=== PATIENT | male | born 1945 | race Caucasian/White ===

== ENCOUNTER → 2023-11-22 07:02 | Outpatient (REF) | payer MEDICARE, OTHER, SELFPAY | LOC: RCS 07:02 | PROVIDERS: ATTENDING PHYSICIAN Internal Medicine Cardiovascular Disease; FAMILY PHYSICIAN Family Medicine | DX: I35.0 Nonrheumatic aortic (valve) stenosis (principal) | CPT/HCPCS: 93306 ==

== ENCOUNTER → 2024-06-05 08:01 | Outpatient (REF) | payer MEDICARE, OTHER, SELFPAY | LOC: RCS 08:01 | PROVIDERS: ATTENDING PHYSICIAN Physician Assistant Medical; FAMILY PHYSICIAN Family Medicine | DX: I35.0 Nonrheumatic aortic (valve) stenosis (principal) | CPT/HCPCS: 93306 ==

== ENCOUNTER → 2024-12-15 06:56 | Outpatient (REF) | payer MEDICARE, OTHER, SELFPAY | LOC: RCS 06:56 | PROVIDERS: ATTENDING PHYSICIAN Internal Medicine Cardiovascular Disease; FAMILY PHYSICIAN Family Medicine | DX: I35.0 Nonrheumatic aortic (valve) stenosis (principal) | CPT/HCPCS: 93306 ==

== ENCOUNTER 2025-05-01 15:01 | Inpatient (IN) | payer MEDICARE, OTHER, SELFPAY ==
[2025-05-01 10:04] VITALS: BP 196/116
[2025-05-01 10:31] LABS: Hematocrit 43.2 % (39.0-52.0); Hemoglobin 15.0 g/dL (13.0-18.0); Mean Corp Hgb Conc. 34.7 g/dL (33.0-37.0); Mean Corpuscular Volume 86.9 fL (80.0-94.0); Nucleated Red Blood Cells % 0 % (-); Platelet Count 279 10^3/uL (130-400); Red Cell Dist. Width 11.9 % (11.5-14.5)
[2025-05-01 11:01] LABS: Albumin 4.4 g/dl (3.5-5.0); Alkaline Phosphatase 167 U/L (38-126); Blood Urea Nitrogen 11 mg/dl (9-20); Calcium 10.2 mg/dl (8.4-10.2); Carbon Dioxide 29 mmol/L (22-30); Chloride 99 mmol/L (98-107); Glucose 133 mg/dl (70-99); Lipase 251 U/L (23-300); Potassium 4.7 mmol/L (3.5-5.1); Sodium 133 mmol/L (135-145); Total Protein 8.1 g/dl (6.3-8.2); eGFR > 60.00
[2025-05-01 11:08] LABS: ALT (SGPT) 1012 U/L (0-50); AST (SGOT) 863 U/L (17-59)
[2025-05-01 11:09] VITALS: BMI 27.8
[2025-05-01] MEDS: TORADOL 15 MG IV (12:09)
[2025-05-01 12:31] LABS: Urine Character Clear (Clear)
[2025-05-01 12:43] LABS: Urine Squamous Cell 0-2 /LPF (Few)
[2025-05-01 12:44] LABS: Urine Red Blood Cell 0-2 /HPF (0-2)
--- NOTE | 2025-05-01 14:08 | ED.GENMED ---
History of Present Illness
General
Chief Complaint: Abdominal Symptoms
Time Seen by Provider: 05/01/25 11:32
History of Present Illness
History of Present Illness:
79-year-old male with history of hyperlipidemia presenting to the emergency department for 2 weeks of upper abdominal pain. Patient notes that the pain is right-sided. Denies any known association with food. Denies associated chest pain or
difficulty breathing. Denies any history. Denies any vomiting. Denies any known history of gallbladder issues. Denies fever. Patient went to urgent care, was sent to the ER for further assessment
Phy Exam
Physical Exam
Physical Exam:
General: Well-appearing, no clinical signs of dehydration, nontoxic and in no acute distress
HEENT: protecting airway
Neck: appears supple
CV: Normal heart rate, regular rhythm
Resp: No accessory muscle use, no increased work of breathing
Abd: Soft and non-distended, focal tenderness to the right upper quadrant without rebound or guarding
Extremities: No deformities, no swelling
Neuro: alert, no focal neurologic deficit
: deferred
Rectal: deferred
Psych: Normal affect
Skin: Intact
Course
Orders/Labs/Results
Orders:
Orders
05/01/25 10:20
Complete Blood Count/With Diff Urgent
Comprehensive Metabolic Panel Urgent
Lipase Urgent
05/01/25 11:59
Ketorolac [Toradol] 15 mg IV NOW STA
US Abdomen Complete/Upper Urgent
Comment:
Reason For Exam: upper pain, transaminitis, elevated T.bili
05/01/25 12:10
Urinalysis Reflex To Culture Urgent
Date Specimen was Collected: 05/01/25
Time Specimen was Collected: 12:01
Urine Microscopic Reflex Cult Urgent
Urine Culture Urgent
JAKY Source: U
Specimen Description:
Date Specimen was Collected: 05/01/25
Time Specimen was Collected: 12:01
05/01/25 14:02
Piperacillin/Tazo 4.5 Gram [Zosyn] 4.5 gram in 100 ml IV NOW
Abnormal Lab Results
05/01/25 05/01/25
10:20 12:10
Absolute Monos (auto) 0.8 H 10^3/uL
(0.1-0.6)
Lymphocytes % 16.5 L %
(20.5-51.1)
Sodium 133 L mmol/L
(135-145)
Creatinine 0.6 L mg/dL
(0.7-1.3)
Glucose 133 H mg/dl
(70-99)
Total Bilirubin 3.1 H mg/dl
(0.2-1.3)
AST 863 H* U/L
(17-59)
ALT 1012 H* U/L
(0-50)
Alkaline Phosphatase 167 H U/L
(38-126)
Ur Occult Blood Reflex 2+ A
(Negative)
Urine Urobilinogen 3+ A
(Neg - 1+)
Urine Bacteria (Reflex) Many A
(Negative)
Urine Albumin (Reflex) 3+ A
(Neg - Trace)
05/01/25 10:20
05/01/25 10:20
Vital Signs
Initial and Last Documented VS:
Initial Vital Signs
Temp Pulse Resp BP Pulse Ox
98.4 F 88 20 196/116 91
05/01/25 10:04 05/01/25 10:04 05/01/25 10:04 05/01/25 10:04 05/01/25 10:04
Last Documented Vital Signs
Temp Pulse Resp BP Pulse Ox
98.4 F 88 20 196/116 91
05/01/25 10:04 05/01/25 10:04 05/01/25 12:00 05/01/25 10:04 05/01/25 14:09
MDM/Problems Addressed
MDM/Problems Addressed:
79-year-old male with history of hyperlipidemia presenting to the emergency department for 2 weeks of upper abdominal pain. Vital signs on arrival are significant for high blood pressure.
On exam patient is resting comfortably, no acute distress. Mild focal reproducible tenderness in the right upper quadrant. Patient had labs obtained prior to my assessment with markedly abnormal liver function and T. bili. Given these findings,
choledocholithiasis versus cholecystitis. Will initiate workup with right upper quadrant ultrasound imaging.
14:30 - Right upper quadrant ultrasound is consistent with sludge, gallstones, mild wall thickening. Additionally there is concern for mild intrahepatic biliary tract dilatation. Again concern for choledocholithiasis. GI made aware. Starting
antibiotics for additional concern of possible cholecystitis. Plan for admission
*Pulse Oximetry
SaO2: 91
Oxygen Mode of Delivery: Room air
Patient hypoxic: no
*Critical Care Note
Total Time (30-74mins, 75-104mins- exclusive of procedures): Not Applicable
ED Attending Note
-
Portions of this chart may have been created with voice recognition software.� Occasional wrong word or��sound alike� substitutions may have occurred due to the inherent limitations of voice recognition software.
Discharge Plan
Departure
Patient Disposition: Admit
Date of Disposition: 05/01/25
Time of Disposition: 14:24
Presentation/result/management discussed w/ accepting MD/DO: Hospitalist
Patient with high blood pressure during this ER visit?: No
Condition: Fair
Discharge Problem:
Transaminitis, Abdominal pain, Choledocholithiasis
Prescriptions:
No Action
atorvastatin [Lipitor] 10 mg Tablet
10 mg PO DAILY
Referrals:
Dilan Connolly MD [Family Provider, Family Practice]
Interventions
Interventions:
*Risk Screen - Suicide Last Done: 05/01/25 10:04
*General Assessment Last Done: 05/01/25 10:04
*Neglect/Abuse Screening Last Done: 05/01/25 10:04
*ED- Fall Risk Assessment Last Done: 05/01/25 11:11
*ED COVID-19 Vaccine History Last Done: 05/01/25 11:11
*ED Influenza Vaccine History Last Done: 05/01/25 11:11
YB-Pclayu-Qgdzrufufj Assessment Last Done: 05/01/25 11:10
Discharge Date and Time
Print Language: SAMI
[2025-05-01] MEDS: ZOSYN 100 IV (14:09)
--- NOTE | 2025-05-01 14:19 | HPS.HSE ---
Addendum entered and electronically signed by Paxton Brock MD 05/01/25 16:31:
This is an addendum to H&P written by Nuris Renae on 05/01/2025. �Patient seen and examined independently with [employer].
79-year-old male past medical history of hypertension, hyperlipidemia, fibromyalgia, chronic cough, presenting with right upper quadrant abdominal intermittently pain for 2 weeks worse with cough.
Vital signs show blood pressure 196/116.
Labs show significantly elevated LFTs up to ALT of 1000. �Bilirubin of 3.1.
Abdominal ultrasound shows cholelithiasis, gallbladder sludge with mild gallbladder wall thickening, negative sonographic Paige sign, common bile duct normal in caliber.
Patient with likely choledocholithiasis/acute cholecystitis. �N.p.o., Zosyn, MRCP, GI consulted.
As needed hydralazine for elevated blood pressure.
Original Note:
Family Physician
-
Family Physician: Dilan Connolly
Chief Complaint
-
right sided adominal pain
History of Present Illness
79-year-old male with history of hyperlipidemia presenting to the emergency department for 2 weeks of right sided upper abdominal pain which radiates to his back and around. it gets worse with cough, it gets betters its own. patient was not able to
sleep last night due to the pain. denied n/v/d. denied fever, chills,congestion. denied chest pain, sob. denied dysuria or hematuria.
Patient received a dose of Toradol, Zosyn in ER. Admitting for further management
Medical History
Past Medical History
Past Medical History: Reports Other
Additional Past Medical History:
Hypertension, hypercholesteremia, fibromyalgia, hyperlipidemia
Past Surgical History: Reports Other
Additional Past Surgical History:
Carpal tunnel repair, prostatectomy, tonsillectomy
Social History
Tobacco: Non-smoker
Alcohol: Occasional
Drug: None
Family History
Family History: Not pertinent
Allergies / Home Medications
Allergies reflects when Allergies were last updated in [facility].
Home Medications with original date entered in [facility]
Allergy/Medication List:
Allergies
Allergy/AdvReac Type Severity Reaction Status Date / Time
No Known Allergies Allergy Verified 05/01/25 10:08
Home Medications
atorvastatin 10 mg tablet (Lipitor) 10 mg PO DAILY High Cholesterol 05/01/25
Review of Systems
-
Constitutional: Reports No Symptoms
EENT: Reports No Symptoms
Respiratory: Reports No Symptoms
Cardiac: Reports No Symptoms
Abdomen/GI: Reports Abdominal Pain
: Reports No Symptoms
Musculoskeletal: Reports No Symptoms
Skin: Reports No Symptoms
Neurological: Reports No Symptoms
Endocrine: Reports No Symptoms
Hematologic/Lymphatic: Reports No Symptoms
Psych: Reports No Symptoms
Physical Exam
Vital Signs
Vital Signs
Temp Pulse Resp BP Pulse Ox
98.4 F 88 20 196/116 91
05/01/25 10:04 05/01/25 10:04 05/01/25 12:00 05/01/25 10:04 05/01/25 14:09
Physical Exam
General: Well Developed, Well Nourished and No Apparent Distress
HEENT: NormoCephalic, Moist mucous membranes and Atraumatic
Respiratory: Clear
Cardiac: S1/S2 and Regular Rhythm; No Murmur or Rub
GI: Soft, Non Tender, Non Distended and Normal Bowel Sounds; No Organomegaly
Rectal: Deferred by Provider
Musculoskeletal: No Clubbing, No Cyanosis and No Edema
Skin: No Rash
Neuro: AO x 3 and Nonfocal/grossly intact
Psych: Calm
Laboratory Results
-
05/01/25 10:20
05/01/25 10:20
Laboratory Results
Total Bilirubin 3.1 mg/dl (0.2-1.3) H 05/01/25 10:20
AST 863 U/L (17-59) H* 05/01/25 10:20
ALT 1012 U/L (0-50) H* 05/01/25 10:20
Alkaline Phosphatase 167 U/L (38-126) H 05/01/25 10:20
Lipase 251 U/L (23-300) 05/01/25 10:20
Data Reviewed
-
Diagnostic Radiology: Report Reviewed by me
Lab Data: Labs Reviewed by me
Impression/Plan
-
# Upper abdominal pain concern for possible biliary stone/cholecystitis
-fluids continued for hydration
-keep patient nPO
-abx continued
-Zosyn continued
-Dilaudid p.o. for pain
-GI consulted
- T. bili 3.1, AST 863, ALT 1012
- Abdominal ultrasound with impression of Cholelithiasis and gallbladder sludge with mild gallbladder wall thickening. Negative sonographic Paige's sign. Common bile duct within the limits of normal in caliber. Findings suggesting mild intrahepatic
biliary tract dilatation. Consider GI consultation and/or MRI/MRCP for more complete evaluation.Pancreas and mid/distal abdominal aorta significantly obscured, most likely by overlying bowel gas.
# Hypertension emergency secondary to pain
# Hyperlipidemia
- Hold Lipitor in setting of transaminitis
# DVT prophylaxis
- Lovenox
# CODE STATUS
- Full code
--- NOTE | 2025-05-01 14:41 | CON.GI ---
Addendum entered and electronically signed by Matheus Sommer MD 05/01/25 16:00:
I saw and evaluated the patient. I reviewed the resident�s note and agree with findings and plan as documented in the resident�s note.
79 yo male presents with two weeks of episodic RUQ pain increasing in intensity. Also noted dark urine. AST 863, ALT 1012, TB 3.1, AP 167. US shows gallstones and sludge, mild GBWT, mild IHDD. Pain relieved with meds. WBC 8.1.
REC:
Presentation c/w choledocholithiasis.
Will check MRI/MRCP to r/o CBD stone
If positive, ERCP for extraction followed by cholecystectomy
If negative, would discuss cholecystectomy directly and consult Surgery
Original Note:
Consultation
-
Date/Time Consultation Requested: 05-01-25
Date/Time Consultation Performed: 05-01-25
Requesting Provider: Dr. Eduarda Finn
Performing Provider: Dr. Matheus Sommer
Reason for Consultation: RUQ pain
Medical History
Chief Complaint / HPI
Chief Complaint: RUQ pain
History of Present Illness:
Papo Mccormick, 79-year-old with medical history significant for hypertension and hyperlipidemia, is admitted to [facility] with 2 weeks of progressive RUQ pain. Denies any preceding illness or changes to his health leading up to the onset of the pain.
The pain was intermittent at first and has now become constant. Worse with movement and coughing. Not associated with foods, and no other known exacerbating factors. No known relieving factors; he denies taking any medications, acetaminophen or
NSAIDs, for the pain. No known history of hepatic or biliary disorders. Labs in the ED were notable for AST 863 and ALT 1012 with an AlkP of 167. US abdomen findings consistent with mild intrahepatic biliary tract dilatation. Reports decreased
appetite since the pain began. No fevers, chills, night sweats, fatigue, weakness, nausea, vomiting, diarrhea, constipation, blood in stool or unintentional weight loss.
Past Medical History
Past Medical History: HTN and Hypercholesterolemia
Past Surgical History: Other (tonsillectomy, proctectomy, carpal tunnel surgery)
Social History
Tobacco: Non-Smoker
Alcohol: None
Drug: None
Employment: Retired
Family History
Family History: Other (gall bladder disease in mother)
Allergies / Home Medications
Allergy/AdvReac Type Severity Reaction Status Date / Time
No Known Allergies Allergy Verified 05/01/25 10:08
�Medication �Instructions �Recorded
atorvastatin 10 mg tablet (Lipitor) 10 mg PO DAILY High Cholesterol 05/01/25
Review of Systems
-
History Source: Patient
All other systems: A 12 pt ROS was Negative except as stated above in HPI
Vital Signs
Temp Pulse Resp BP Pulse Ox
98.4 F 88 20 196/116 91
05/01/25 10:04 05/01/25 10:04 05/01/25 12:00 05/01/25 10:04 05/01/25 14:09
Physical Exam
Exam
General: No Apparent Distress and Comfortable
HEENT: Normocephalic, Atraumatic and Other (scleral icterus)
Respiratory: Clear and Non Labored Respirations
Cardiac: S1/S2 and Regular Rhythm; Negative Murmur or Rub
GI: Soft, Non Tender, Non Distended, Normal Bowel Sounds, Organomegaly and Other (Negative Paige's)
Genito-urinary: No Costovertebral Tender
Musculoskeletal: No Clubbing, No Cyanosis and No Edema
Neuro: Awake, Alert, Oriented, No Motor Deficits and Nonfocal/Grossly Intact
Psych: Calm
Results
WBC 8.1 10^3/uL (4.8-10.8) 05/01/25 10:20
Hgb 15.0 g/dL (13.0-18.0) 05/01/25 10:20
Hct 43.2 % (39.0-52.0) 05/01/25 10:20
MCV 86.9 fL (80.0-94.0) 05/01/25 10:20
Plt Count 279 10^3/uL (130-400) 05/01/25 10:20
Absolute Neuts (auto) 5.7 10^3/uL (1.4-6.5) 05/01/25 10:20
Sodium 133 mmol/L (135-145) L 05/01/25 10:20
Potassium 4.7 mmol/L (3.5-5.1) 05/01/25 10:20
Chloride 99 mmol/L (98-107) 05/01/25 10:20
Carbon Dioxide 29 mmol/L (22-30) 05/01/25 10:20
BUN 11 mg/dl (9-20) 05/01/25 10:20
Creatinine 0.6 mg/dL (0.7-1.3) L 05/01/25 10:20
Calcium 10.2 mg/dl (8.4-10.2) 05/01/25 10:20
Total Bilirubin 3.1 mg/dl (0.2-1.3) H 05/01/25 10:20
AST 863 U/L (17-59) H* 05/01/25 10:20
ALT 1012 U/L (0-50) H* 05/01/25 10:20
Alkaline Phosphatase 167 U/L (38-126) H 05/01/25 10:20
Lipase 251 U/L (23-300) 05/01/25 10:20
Diagnostic Image Results:
05-01-25: US abdomen: Findings compatible with diffuse fatty liver. Cholelithiasis and gallbladder sludge with mild gallbladder wall thickening. Negative sonographic Paige's sign. Common bile duct within the limits of normal in caliber. Findings
suggesting mild intrahepatic biliary tract dilatation. Consider GI consultation and/or MRI/MRCP for more complete evaluation. Pancreas and mid/distal abdominal aorta significantly obscured, most likely by overlying bowel gas.
Assessment / Plan
-
Papo Castillojoseakash, 79-year-old with medical history significant for hypertension and hyperlipidemia, is admitted to [facility] with 2 weeks of progressive RUQ pain. Denies any preceding illness or changes to his health leading up to the onset of the pain.
The pain was intermittent at first and has now become constant. Worse with movement and coughing. Not associated with foods, and no other known exacerbating factors. No known relieving factors; he denies taking any medications, acetaminophen or
NSAIDs, for the pain. No known history of hepatic or biliary disorders. Labs in the ED were notable for AST 863 and ALT 1012 with an AlkP of 167. US abdomen findings consistent with mild intrahepatic biliary tract dilatation.
Impressions:
* Choledocholithiasis/cholecystitis with biliary obstruction
* Transaminitis, likely secondary to above
* Hyperbilirubinemia, likely secondary to above
* Hypertensive urgency
* Primary hypertension
* Hypercholesteremia
Recommendations:
- History and presentation more consistent with primary biliary dysfunction.
- Check direct bilirubin; follow LFTs.
- Check MRCP.
- Keep NPO with IV hydration for now.
- Hold atorvastatin; avoid NSAIDs, acetaminophen and hepatotoxins.
-
-
Thank you for consultation and allowing me to participate in the patient's care. Please call the coupon redemption clerk GI physician during the after hours with any questions or concerns.
--- NOTE | 2025-05-01 15:33 | CM ---
chart reviewed and spoke with patient his at ED bedside
[place] with
no DME
Independent with ADLs and ambulation
PCP Dr. Dilan Connolly
[facility] on [address]
no hx of VN nor SNF
DCP is to go home with no needs
can drive him home
CM will continue to follow up for any dcp needs
[2025-05-01 16:09] VITALS: BP 159/95
[2025-05-01] MEDS: LOVENOX SC (18:27)
[2025-05-01] MEDS: NSS 1000 IV (20:23)
[2025-05-01] MEDS: ZOSYN 50 IV (20:26)
[2025-05-01 23:13] VITALS: BP 141/80
[2025-05-02] MEDS: ZOSYN 50 IV ×4 (02:15→20:50)
[2025-05-02] MEDS: DILAUDID 0.5 MG IV (05:13)
[2025-05-02 07:07] LABS: Hematocrit 40.7 % (39.0-52.0); Hemoglobin 14.1 g/dL (13.0-18.0); Mean Corp Hgb Conc. 34.6 g/dL (33.0-37.0); Mean Corpuscular Volume 87.7 fL (80.0-94.0); Platelet Count 279 10^3/uL (130-400); Red Cell Dist. Width 12.2 % (11.5-14.5)
[2025-05-02 07:33] LABS: Albumin 3.7 g/dl (3.5-5.0); Alkaline Phosphatase 153 U/L (38-126); Blood Urea Nitrogen 11 mg/dl (9-20); Calcium 9.2 mg/dl (8.4-10.2); Carbon Dioxide 30 mmol/L (22-30); Chloride 101 mmol/L (98-107); Estimated Creatinine Clearance 81 ml/min; Glucose 90 mg/dl (70-99); Potassium 4.7 mmol/L (3.5-5.1); Sodium 135 mmol/L (135-145); Total Protein 6.9 g/dl (6.3-8.2); eGFR > 60.00
[2025-05-02] MEDS: NSS 1000 IV ×2 (07:34→20:48)
[2025-05-02 07:45] VITALS: BP 160/98
[2025-05-02 07:57] LABS: ALT (SGPT) 1125 U/L (0-50); AST (SGOT) 751 U/L (17-59)
--- NOTE | 2025-05-02 08:22 | W.PN.HOSP.TC ---
Today's Communication/Plan
-
Trend LFTs
Consider DC of Zosyn
Follow up MRCP
surgery consult
Assessment / Plan
Assessment / Plan
#Choledocholithiasis
- Presented with RUQ discomfort, intermittent for 2 weeks worse with cough
- Labs with uptrending bilirubin to 5, transaminases in the low thousands with slight uptrend
- Was started on IV Zosyn empirically; GI consulted and recommended MRCP which is ordered
- Patient likely will need cholecystectomy but timing likely dependent on results of MRCP
- Continue with IV Zosyn, trend CBC + temperature curve + LFTs, serial abdomen exams
- Follow-up MRCP and consider ERCP for stone retrieval if positive
- Consult general surgery for planning of cholecystectomy
- Supportive care with analgesics, antiemetics, IVF
- Consider discontinuing IV Zosyn today
#Dyslipidemia
- Home regimen includes moderate intensity atorvastatin
- No known ASCVD history
- Encouraged low-fat diet
#Primary hypertension
- No known history of systemic complications, not on home medications
- Started on as needed hydralazine here
#Fibromyalgia
- Not currently on home medications
- Appears stable
Diet: N.p.o. for now
DVT: SQ Lovenox
Code: Full code
Dispo: Home when medically stable
Discussed with General Surgery
Anticipated Discharge: > 48 hours
Subjective/Interval History
-
Date of Service: May 02, 2025
Seen and examined at the bedside. MARCO. TONYVSS. T bili uptrending
Denies significant abdomen pain, N/V, fevers today.
Denies new complaints
Objective Data
-
Labs:
Laboratory Results
05/02/25
06:42
WBC 7.3
Hgb 14.1
Hct 40.7
Plt Count 279
Sodium 135
Potassium 4.7
Chloride 101
Carbon Dioxide 30
BUN 11
Creatinine 0.7
Glucose 90
Calcium 9.2
Total Bilirubin 5.0 H D
AST 751 H*
ALT 1125 H*
Alkaline Phosphatase 153 H
Vital Signs:
Vital Signs
Temp Pulse Resp BP Pulse Ox
98.2 F 88 16 160/98 96
05/02/25 07:45 05/02/25 07:45 05/02/25 07:45 05/02/25 07:45 05/02/25 07:45
Review of Systems
-
History Source: Patient
All other systems: Reviewed and negative
Physical Exam
-
General: Well Developed, Well Nourished and No Apparent Distress
HEENT: Normocephalic, Atraumatic, Moist Mucous Membranes and Anicteric
Respiratory: Clear to Auscultation and Non Labored Respirations; Negative Accessory Resp Muscle Use
Cardiac: Regular Rhythm, S1/S2 and Murmur; Negative Rub, JVD or Gallop
GI: Soft, Nontender, Normal Bowel Sounds and Distended (Mild distension)
Musculoskeletal: No Clubbing, No Cyanosis and No Edema
Skin: Warm, Dry and Jaundice; Negative Rash
Neuro: AO x 3 and Nonfocal/Grossly Intact; Negative Tremors
Psych: Calm
Data Reviewed
-
Labs: Labs Reviewed by me, Discussed with Patient and Discussed with Family
--- NOTE | 2025-05-02 12:46 | W.PN.GI.CBS2 ---
Today's Communication / Plan
-
Will need ERCP to remove CBD stones. Tentatively plan on Sunday since he is currently stable and pain free, though LFTs karina today
If he does not remain stable, will need to check if one of my partners is available for ERCP vs transfer to [place]
Continue zosyn
Trend LFTs, WBC
Keep on sips clears
Assessment / Plan
-
Summary: 79 yo male presents with two weeks of episodic RUQ pain increasing in intensity. Also noted dark urine. AST 863, ALT 1012, TB 3.1, AP 167. US shows gallstones and sludge, mild GBWT, mild IHDD. Pain relieved with meds. WBC 8.1.
05/01 US- Fatty liver. Cholelithiasis, GB sludge with mild GBWT. Mild IHDD
05/02 MRI- Choledocholithiasis and sludge in CBD. Acute cholangitis with IHDD/EHDD. Acute/chronic cholecystitis.
Impression:
Choledocholithiasis
RUQ pain
Abnl LFTs
Gallstones. Mild IHDD
Subjective
Subjective
Date of Service: May 02, 2025
Denies abd pain with pain meds. Asking to eat
Objective
Data Reviewed
Laboratory Data:
Laboratory Results
05/02/25 06:42
05/02/25 06:42
Laboratory Results
Total Bilirubin 5.0 mg/dl (0.2-1.3) H D 05/02/25 06:42
AST 751 U/L (17-59) H* 05/02/25 06:42
ALT 1125 U/L (0-50) H* 05/02/25 06:42
Alkaline Phosphatase 153 U/L (38-126) H 05/02/25 06:42
Lipase 251 U/L (23-300) 05/01/25 10:20
Vital Signs and I&O:
Vital Signs
Temp Pulse Resp BP Pulse Ox
98.2 F 88 16 160/98 96
05/02/25 07:45 05/02/25 07:45 05/02/25 07:45 05/02/25 07:45 05/02/25 07:45
Physical Exam
Physical Exam
GI: Soft, Non Distended and Non Tender
[2025-05-02 15:41] VITALS: BP 129/85
[2025-05-02] MEDS: LOVENOX 40 MG SC (17:23)
[2025-05-02 23:38] VITALS: BP 140/84
[2025-05-03] MEDS: ZOSYN 50 IV ×4 (02:00→19:46)
[2025-05-03] MEDS: NSS 1000 IV ×2 (06:27→17:08)
[2025-05-03 07:25] LABS: Hematocrit 40.2 % (39.0-52.0); Hemoglobin 14.0 g/dL (13.0-18.0); Mean Corp Hgb Conc. 34.8 g/dL (33.0-37.0); Mean Corpuscular Volume 89.9 fL (80.0-94.0); Nucleated Red Blood Cells % 0 % (-); Platelet Count 287 10^3/uL (130-400); Red Cell Dist. Width 12.0 % (11.5-14.5)
--- NOTE | 2025-05-03 07:41 | W.PN.HOSP.TC ---
Addendum entered and electronically signed by Jose A Ruff DO 05/03/25 09:51:
#Severe aortic regurgitation
- Patient with diastolic murmur, has known severe AR echo showing LVEF 54%
- No signs of decompensated volume status at this time, stable on room air
- Will need to follow-up OP for repeat echoes, consider AVR if LVEF <50%
- Monitor I's and O's, daily weights, O2 status
- Plan for OP CT surgical eval
Original Note:
Today's Communication/Plan
-
Continue IV Zosyn
Trend LFTs
As needed analgesics and antiemetics
N.p.o. at midnight for possible ERCP
Surgical planning for cholecystectomy
Assessment / Plan
Assessment / Plan
#Choledocholithiasis
#Acute on chronic cholecystitis
#Suspected cholangitis
- Presented with RUQ discomfort, intermittent for 2 weeks worse with cough
- Labs with uptrending bilirubin to 5, transaminases in the low thousands with slight uptrend
- Was started on IV Zosyn empirically; GI consulted and recommended MRCP which is ordered
- MRCP did show choledocholithiasis with signs of acute on chronic cholecystitis and cholangitis
- Continue with IV Zosyn, trend CBC + temperature curve + LFTs, serial abdomen exams
- Plan for ERCP Sunday for stone retrieval, sooner if he becomes unstable
- May not need ERCP if LFTs still downtrend, will still need cholecystectomy
- Consulted general surgery for planning of cholecystectomy
- Supportive care with analgesics, antiemetics, IVF
#Dyslipidemia
- Home regimen includes moderate intensity atorvastatin
- No known ASCVD history
- Encouraged low-fat diet
#Primary hypertension
- No known history of systemic complications, not on home medications
- Started on as needed hydralazine here
#Fibromyalgia
- Not currently on home medications
- Appears stable
Diet: CLD, NPO @ MN
DVT: SQ Lovenox
Code: Full code
Dispo: Home when medically stable
Discussed with General Surgery and GI
Anticipated Discharge: > 48 hours
Subjective/Interval History
-
Date of Service: May 03, 2025
Seen and examined at the bedside. No acute events reported overnight. AFVSS this morning
LFTs downtrending with bilirubin down to 3. Remainder of labs stable
Denies any complaints this morning, abdomen pain minimal
Objective Data
-
Labs:
Laboratory Results
05/03/25
07:00
WBC 6.1
Hgb 14.0
Hct 40.2
Plt Count 287
Sodium Pending
Potassium Pending
Chloride Pending
Carbon Dioxide Pending
BUN Pending
Creatinine Pending
Glucose Pending
Calcium Pending
Total Bilirubin Pending
AST Pending
ALT Pending
Alkaline Phosphatase Pending
Vital Signs:
Vital Signs
Temp Pulse Resp BP Pulse Ox
98.6 F 71 18 140/84 96
05/02/25 23:38 05/02/25 23:38 05/02/25 23:38 05/02/25 23:38 05/02/25 23:38
I&O
05/02/25 05/03/25 05/04/25
06:59 06:59 06:59
Intake Total 720 / 720
Output Total 1400 / 1400
Balance -680 / -680
Review of Systems
-
History Source: Patient
All other systems: Reviewed and negative
Physical Exam
-
General: Well Developed, Well Nourished and No Apparent Distress
HEENT: Normocephalic, Atraumatic, Moist Mucous Membranes and Anicteric
Respiratory: Clear to Auscultation and Non Labored Respirations; Negative Accessory Resp Muscle Use
Cardiac: Regular Rhythm, S1/S2 and Murmur; Negative Rub or Gallop
GI: Soft, Nontender, Nondistended and Normal Bowel Sounds
Musculoskeletal: No Clubbing, No Cyanosis and No Edema
Skin: Warm and Dry; Negative Rash or Jaundice
Neuro: AO x 3, Nonfocal/Grossly Intact and Central Nerve's Intact; Negative Tremors
Psych: Calm
Data Reviewed
-
Labs: Labs Reviewed by me, Discussed with Physician and Discussed with Patient
[2025-05-03 08:00] VITALS: BP 158/96
[2025-05-03 08:08] LABS: AST (SGOT) 542 U/L (17-59); Albumin 3.6 g/dl (3.5-5.0); Alkaline Phosphatase 155 U/L (38-126); Blood Urea Nitrogen 11 mg/dl (9-20); Calcium 9.2 mg/dl (8.4-10.2); Carbon Dioxide 27 mmol/L (22-30); Chloride 105 mmol/L (98-107); Estimated Creatinine Clearance 95 ml/min; Glucose 85 mg/dl (70-99); Magnesium 2.3 mg/dl (1.6-2.3); Potassium 4.8 mmol/L (3.5-5.1); Sodium 135 mmol/L (135-145); Total Protein 6.7 g/dl (6.3-8.2); eGFR > 60.00
[2025-05-03 08:34] LABS: ALT (SGPT) 1022 U/L (0-50)
--- NOTE | 2025-05-03 08:52 | W.PN.GI.CBS2 ---
Today's Communication / Plan
-
LFTs downtrending today
No abd pain
Cont abx
clears
ERCP tomorrow
Assessment / Plan
-
Summary: 79 yo male presents with two weeks of episodic RUQ pain increasing in intensity. Also noted dark urine. AST 863, ALT 1012, TB 3.1, AP 167. US shows gallstones and sludge, mild GBWT, mild IHDD. Pain relieved with meds. WBC 8.1.
05/01 US- Fatty liver. Cholelithiasis, GB sludge with mild GBWT. Mild IHDD
05/02 MRI- Choledocholithiasis and sludge in CBD. Acute cholangitis with IHDD/EHDD. Acute/chronic cholecystitis.
Impression:
Choledocholithiasis
RUQ pain
Abnl LFTs
Gallstones. Mild IHDD
Subjective
Subjective
Date of Service: May 03, 2025
Denies abd pain. No pain med requirement overnight.
Objective
Data Reviewed
Laboratory Data:
Laboratory Results
05/03/25 07:00
05/03/25 07:00
Laboratory Results
Magnesium 2.3 mg/dl (1.6-2.3) 05/03/25 07:00
Total Bilirubin 3.1 mg/dl (0.2-1.3) H 05/03/25 07:00
AST 542 U/L (17-59) H* 05/03/25 07:00
ALT 1022 U/L (0-50) H* 05/03/25 07:00
Alkaline Phosphatase 155 U/L (38-126) H 05/03/25 07:00
Lipase 251 U/L (23-300) 05/01/25 10:20
Vital Signs and I&O:
Vital Signs
Temp Pulse Resp BP Pulse Ox
97.6 F 89 12 158/96 96
05/03/25 08:00 05/03/25 08:00 05/03/25 08:00 05/03/25 08:00 05/03/25 08:00
I&O
05/02/25 05/03/25 05/04/25
06:59 06:59 06:59
Intake Total 720 / 720
Output Total 1400 / 1400
Balance -680 / -680
Physical Exam
Physical Exam
GI: Soft, Non Distended and Non Tender
--- NOTE | 2025-05-03 11:01 | CON.GS ---
Addendum entered and electronically signed by Edi Diaz MD 05/04/25 10:40:
I saw and examined the patient independently.
The Undraped Artist Model's note was reviewed and I agree with the note, assessment and plan except where noted below.
Comment: This is an 79-year-old male with history of prostate cancer status post perineal prostatectomy, EtOH use, who presents with intermittent postprandial right upper quadrant abdominal pain found to have choledocholithiasis and acute
cholangitis . MRI was also read as cholecystitis but on my read the gallbladder was contracted with large stones and he has minimal tenderness on exam.
Patient is n.p.o. for ERCP today, okay for diet afterwards (per GI) as it is unlikely will be able to coordinate same-day cholecystectomy.
N.p.o. at midnight, patient added on for OR tomorrow for a laparoscopic cholecystectomy.
IV fluids
IV antibiotics.
General Surgery will follow.
Risks/Benefits/Alternatives, expected postoperative course and possible complications (bleeding, infection, injury to surrounding structures, acute/chronic pain) discussed at length. Patient wishes to proceed with surgery. All questions answered.
Consent obtained.
I spent 70 minutes in total for the care of this patient today including direct patient care and counseling, reviewing labs, imaging, coordination of care, as well as documentation.
Original Note:
Consultation
-
Date/Time Consultation Performed: 05/03/25 1015
Medical History
-
Chief Complaint: upper abdominal pain
History of Present Illness:
Mr Rios is an 79 yo male with a h/o prostatectomy for prostate cancer who presented with upper abdominal pain which was intermittent over the last 2 weeks but became more persistent Sunday into causing him to present for evaluation.
He reported pain mostly in the epigastrium and stretching like a band across his upper abdomen and into his mid back. He notes very dark urine but denies acholic stools. He denies fevers, chills, nausea or vomiting. Currently, he reports his pain
has resolved and there is no tenderness noted on exam.
Past Medical History
Past Medical History: Cancer (prostate) and Hypercholesterolemia
Past Surgical History: Orthopedic (bilaterl carpal tunnel release), Tonsilectomy and Urological (prostatectomy (perineal))
Social History
Tobacco: Non-Smoker
Alcohol: Daily (several glasses of franzia wine each afternoon)
Personal:
Living: With Family
Family History
Family History: Reviewed & Not Pertinent
Allergies / Home Medications
Allergy/AdvReac Type Severity Reaction Status Date / Time
No Known Allergies Allergy Verified 05/01/25 10:08
�Medication �Instructions �Recorded �Confirmed �Type
atorvastatin 10 mg tablet (Lipitor) 10 mg PO DAILY High Cholesterol 05/01/25 05/01/25 History
Review of Systems
-
History Source: Patient and Family
All other systems: Negative unless noted
A 10 point review of systems was completed, and was negative except as per HPI.
Physical Exam
Vital Signs
Temp Pulse Resp BP Pulse Ox
97.6 F 89 12 158/96 96
05/03/25 08:00 05/03/25 08:00 05/03/25 08:00 05/03/25 08:00 05/03/25 08:20
05/02/25 05/03/25 05/04/25
06:59 06:59 06:59
Actual Weight 83 kg
Body Mass Index (BMI) 27.8
Lab Results
05/03/25 07:00
05/03/25 07:00
WBC 6.1 10^3/uL (4.8-10.8) 05/03/25 07:00
Hgb 14.0 g/dL (13.0-18.0) 05/03/25 07:00
Hct 40.2 % (39.0-52.0) 05/03/25 07:00
Plt Count 287 10^3/uL (130-400) 05/03/25 07:00
Abs Immat Gran (auto) 0.0 10^3/uL (0-0.05) 05/03/25 07:00
Neutrophils % 73.8 % (42.2-75.2) 05/03/25 07:00
Physical Exam
General: Well Developed and Well Nourished
HEENT: Normocephalic and Moist Mucous Membranes
Respiratory: Non Labored Respirations
GI: Soft, Non Tender and Non Distended
Skin: Warm and Dry
Neuro: Awake, Alert and AO x 3
Psych: Calm
Data Reviewed
-
Ultrasound: Image Personally Visualized and interpreted, Report Reviewed by me, Discussed with Nurse, Discussed with Patient and Discussed with Family
MRI: Image Personally Visualized and interpreted, Report Reviewed by me, Discussed with Physician, Discussed with Patient and Discussed with Family
Labs: Labs Reviewed by me and Discussed with Physician
Old Records: Reviewed
Assessment / Plan
-
79 yo male with a h/o prostate ca s/p prostatectomy and daily etoh who presents with intermittent upper abdominal pain x2 weeks which became more persistent. LFT's elevated with MRI demonstrating choledocholithiasis with inflammatory changes
suggestive of cholangitis and reactive inflammation of the gallbladder as well vs ?chronic cholecystitis. Lipase on arrival was WNL. Bilirubin initially trending up but downtrended today. Transaminitis present. No leukocytosis. Pain/tenderness
resolved. Afvss.
Plan:
Gastroenterology following with plans for ERCP tomorrow
Will plan laparoscopic cholecystectomy after ERCP, timing TBD pending OR availability and timing of ERCP but anticipate on Sunday
Ok for trial of clears from surgical standpoint, NPO after MN for procedure
C/W ABX
IVF as per primary team
Lovenox sq for VTE ppx
[2025-05-03] MEDS: THIAMINE INJECTION 100 MG IV (13:14)
[2025-05-03] MEDS: FOLVITE 50.2 MG IV (13:53)
[2025-05-03 15:24] VITALS: BP 151/91
[2025-05-03] MEDS: LOVENOX 40 MG SC (17:08)
[2025-05-03 23:00] VITALS: BP 162/85
[2025-05-04] VITALS (7 sets, daily range): BP systolic 137–168; BP diastolic 75–100
[2025-05-04] MEDS: ZOSYN 50 IV ×4 (01:39→19:36)
[2025-05-04] MEDS: NSS 1000 IV ×3 (01:39→18:37)
--- NOTE | 2025-05-04 07:18 | W.PN.HOSP.TC ---
Today's Communication/Plan
-
ERCP today
monitor CBC, CMP
likely Lap altagracia tomorrow
Assessment / Plan
Assessment / Plan
#Choledocholithiasis
#Acute on chronic cholecystitis
#Acute cholangitis
- Presented with RUQ discomfort, intermittent for 2 weeks worse with cough
- LFTs today: ALT 279 and AST 751 improving, Tbili down to 1.9; AlkPhos of 150
- MRCP did show choledocholithiasis with signs of acute on chronic cholecystitis and cholangitis
- Continue with IV Zosyn, trend CBC + temperature curve + LFTs, serial abdomen exams
- ERCP today
- general surgery consulted for planning of cholecystectomy, possible on 05/05, lap altagracia
- Supportive care with analgesics, antiemetics, IVF
#Dyslipidemia
- At home, moderate intensity atorvastatin
- No known ASCVD history
- Encouraged low-fat diet
# Aortic stenosis
- Echocardiogram on 06/05/2024 comments on aortic stenosis
- echocardiogram on 12/15/2024 comments on aortic regurgitation, but i feel they meant to state aortic stenosis with commentary on mean gradient across valve etc.
- on my exam, I feel that he has a systolic murmur more c/w aortic stenosis
- will reconcile physical exam findings with attending physician
#Primary hypertension
- No PMH, no home medications
- prn hydralazine
#Fibromyalgia
- Not currently on home medications
- Appears stable
Diet: NPO for ERCP
DVT: SQ Lovenox
Code: Full code
Dispo: Home when medically stable
Anticipated Discharge: 24 - 48 hours
Subjective/Interval History
-
Date of Service: May 04, 2025
79 yo M PMH HLD p/w RUQ pain found to have choledocholithiasis, acute cholangitis, and acute on chronic cholecystitis on MRCP
GI and surgery were consulted with plans for ERCP today
currently receiving zosyn
This morning, he feels well. denies abdominal pain
Objective Data
-
Labs:
Laboratory Results
05/04/25
06:00
WBC Pending
Hgb Pending
Hct Pending
Plt Count Pending
Sodium Pending
Potassium Pending
Chloride Pending
Carbon Dioxide Pending
BUN Pending
Creatinine Pending
Glucose Pending
Calcium Pending
Total Bilirubin Pending
AST Pending
ALT Pending
Alkaline Phosphatase Pending
Vital Signs:
Vital Signs
Temp Pulse Resp BP Pulse Ox
98.1 F 67 16 162/85 96
05/03/25 23:00 05/03/25 23:00 05/03/25 23:00 05/03/25 23:00 05/04/25 00:19
I&O
05/03/25 05/04/25 05/05/25
06:59 06:59 06:59
Intake Total 720 / 720 3490 / 3490
Output Total 1400 / 1400 1600 / 1600
Balance -680 / -680 189 / 189
Review of Systems
-
History Source: Patient
Constitutional: Reports No Symptoms
EENT: Reports No Symptoms Reported
Respiratory: Reports No Symptoms
Cardiac: Reports No Symptoms
Abdomen/GI: Reports No Symptoms
Musculoskeletal: Reports No Symptoms
Neuro: Reports No Symptoms
Physical Exam
-
General: No Apparent Distress
HEENT: Normocephalic and Anicteric
Respiratory: Clear to Auscultation
Cardiac: Other (holosystolic vs. crescendo-decrescendo murmur near erbs point on my exam )
GI: Soft, Nontender and Normal Bowel Sounds
Musculoskeletal: No Edema
Skin: Negative Jaundice
Neuro: AO x 3 and Nonfocal/Grossly Intact
Psych: Calm
[2025-05-04] MEDS: THIAMINE INJECTION 100 MG IV (08:08)
[2025-05-04 08:45] LABS: Hematocrit 38.5 % (39.0-52.0); Hemoglobin 13.0 g/dL (13.0-18.0); Mean Corp Hgb Conc. 33.8 g/dL (33.0-37.0); Mean Corpuscular Volume 89.1 fL (80.0-94.0); Platelet Count 323 10^3/uL (130-400); Red Cell Dist. Width 12.3 % (11.5-14.5)
[2025-05-04 09:18] LABS: AST (SGOT) 279 U/L (17-59); Albumin 3.6 g/dl (3.5-5.0); Alkaline Phosphatase 150 U/L (38-126); Blood Urea Nitrogen 6 mg/dl (9-20); Calcium 8.9 mg/dl (8.4-10.2); Carbon Dioxide 28 mmol/L (22-30); Chloride 105 mmol/L (98-107); Estimated Creatinine Clearance 81 ml/min; Glucose 96 mg/dl (70-99); Potassium 4.0 mmol/L (3.5-5.1); Sodium 135 mmol/L (135-145); Total Protein 6.7 g/dl (6.3-8.2); eGFR > 60.00
[2025-05-04 09:42] LABS: ALT (SGPT) 751 U/L (0-50)
[2025-05-04] MEDS: APRESOLINE 10 MG IV (11:20)
--- NOTE | 2025-05-04 14:01 | W.PN.UPDATE ---
Update Note
Progress Note Update
I saw and evaluated the patient with the resident.
A/P:
# Choledocholithiasis
# Acute on chronic cholecystitis
# Suspected cholangitis
Presented with RUQ discomfort, intermittent for 2 weeks worse with cough
s/p MRCP, showed choledocholithiasis with signs of acute on chronic cholecystitis and cholangitis
Cont empiric IV Zosyn
For ERCP today
Timing of Lap altagracia per GS , possibly 05/05
--- NOTE | 2025-05-04 14:58 | CM ---
ERCP today, plan lap-altagracia, anticipate 05/05/25. IV/Zosyn. Discharge POC: Anticipate home with no needs.
[2025-05-04] MEDS: FOLVITE 50.2 MG IV (14:59)
--- NOTE | 2025-05-04 15:29 | PTCARENOTE ---
patient arrived back to unit. VSS. patient AAOx4. folic acid IV administered per AUG. call roberson in reach. safety maintained. will continue to monitor.
[2025-05-04] MEDS: LOVENOX 40 MG SC (17:02)
--- NOTE | 2025-05-04 21:19 | PTCARENOTE ---
At start of shift, pt agreed to bed alarm As shift continued, pt said 'who's stupid idea was this?' Pt was agitated. Pt education provided. Pt eventually refused bed alarm and requested for it to be removed. Education continued to be provided.
[2025-05-05] VITALS (14 sets, daily range): BP systolic 0–171; BP diastolic 79–101
[2025-05-05] MEDS: ZOSYN 50 IV ×4 (02:10→19:29)
[2025-05-05] MEDS: NSS 1000 IV ×2 (04:22→16:32)
--- NOTE | 2025-05-05 07:09 | W.PN.HOSP.TC ---
Addendum entered and electronically signed by Sarah Beth Stahl MD 05/05/25 19:07:
I saw and evaluated the patient independently. I reviewed and discussed the resident�s note and agree with findings and plan as documented by Dr. Holguin.
GENERAL: well developed, well nourished, male in no apparent distress
HEENT: NC/AT
HEART: regular rate and rhythm, +S1, +S2, BRITNI
LUNGS : clear to auscultation bilaterally
ABDOM: soft, nontender, nondistended, + bowel sounds--post op
EXT: no cyanosis, clubbing, or edema
NEUROLOGIC: grossly intact
Choledocholithiasis/Acute on chronic cholecystitis/Acute cholangitis--s/p ERCP 05/04 and lap altagracia 05/05--complicated by Suspected avulsion of the cystic duct off of the common bile duct with sidewall injury (repaired)--GI reconsulted about possible
ERCP with stent placement--clear liquids per surgery--hold Anticoagulation--cont IV zosyn/protonix
Dyslipidemia- At home, moderate atorvastatin- No known ASCVD history- Encouraged low-fat diet
Aortic stenosis- Echocardiogram on 06/05/2024 comments on aortic stenosis--meds as able
Essential hypertension- No PMH, no home medications- prn hydralazine
Fibromyalgia- Not currently on home medications- Appears stable
DVT proph -- SQ Lovenox
Code status -- Full code
Original Note:
Today's Communication/Plan
-
lap altagracia today
f/u surgery recs
Assessment / Plan
Assessment / Plan
79 yo M PMH HLD p/w RUQ pain found to have choledocholithiasis, acute cholangitis, and acute on chronic cholecystitis on MRCP s/p ERCP
#Choledocholithiasis
#Acute on chronic cholecystitis
#Acute cholangitis
- Presented with RUQ discomfort, intermittent for 2 weeks worse with cough
- MRCP did show choledocholithiasis with signs of acute on chronic cholecystitis and cholangitis
- ERCP on 05/04/2025
- LFTs today: ALT 170 and AST 564 improving, Tbili down to 1.3; AlkPhos of 140
- Continue with IV Zosyn, IV pantoprazole
- monitor CBC, temperature curve, LFTs, serial abdomen exams
- plan for laparoscopic cholecystectomy
- Supportive care with analgesics, antiemetics, IVF
#Dyslipidemia
- At home, moderate atorvastatin
- No known ASCVD history
- Encouraged low-fat diet
# Aortic stenosis
- Echocardiogram on 06/05/2024 comments on aortic stenosis
- echocardiogram on 12/15/2024 comments on aortic regurgitation, but i feel they meant to state aortic stenosis with commentary on mean gradient across valve etc.
- on my exam, I feel that he has a systolic murmur more c/w aortic stenosis
- will reconcile physical exam findings with attending physician
#Primary hypertension
- No PMH, no home medications
- prn hydralazine
#Fibromyalgia
- Not currently on home medications
- Appears stable
Diet: NPO for lap altagracia
DVT: SQ Lovenox
Code: Full code
Dispo: Home when medically stable
Anticipated Discharge: > 48 hours
Subjective/Interval History
-
Date of Service: May 05, 2025
ERCP yesterday
no complaints today
denies abdominal pain
Objective Data
-
Labs:
Laboratory Results
05/05/25
06:00
WBC Pending
Hgb Pending
Hct Pending
Plt Count Pending
Sodium Pending
Potassium Pending
Chloride Pending
Carbon Dioxide Pending
BUN Pending
Creatinine Pending
Glucose Pending
Calcium Pending
Total Bilirubin Pending
AST Pending
ALT Pending
Alkaline Phosphatase Pending
AST 170
ALT 564
AlkPhos 140
Tbili 1.3
ERCP 05/04/2025
Impression:
- Duodenal ulcers.
- Cholecystolithiasis was found.
- The cholangiogram showed normal caliber bile duct without filling
defects. A biliary sphincterotomy was performed.
- The biliary tree was swept and small amount of sludge was found.
Endoscopic Upper GI US 05/04/2025
Impression:
- Pancreatic parenchymal abnormalities consisting of hyperechoic
strands, hyperechoic foci and diffuse echogenicity were noted in the
pancreatic head and entire pancreas.
- The visualized portion of bile duct showed thickened wall but no
stone. There was small segment of bile duct which could not be
visualized. There was no sign of significant pathology in the
ampulla.
- There was diffuse abnormal echotexture in the left lobe of the
liver and in the visualized portion of the liver. This was
characterized by a hyperechoic appearance.
- No specimens collected.
Vital Signs:
Vital Signs
Temp Pulse Resp BP Pulse Ox
98.4 F 75 18 158/94 97
05/04/25 23:11 05/04/25 23:11 05/04/25 23:11 05/04/25 23:11 05/04/25 23:11
I&O
05/04/25 05/05/25 05/06/25
06:59 06:59 06:59
Intake Total 3490 / 3490 100 / 100
Output Total 1600 / 1600 860 / 860
Balance 1890 / 1890 -760 / -760
Review of Systems
-
History Source: Patient
Constitutional: Reports No Symptoms
EENT: Reports No Symptoms Reported
Respiratory: Reports No Symptoms
Cardiac: Reports No Symptoms
Abdomen/GI: Reports No Symptoms
Musculoskeletal: Reports No Symptoms
Neuro: Reports No Symptoms
Physical Exam
-
General: No Apparent Distress
HEENT: Normocephalic and Anicteric
Respiratory: Clear to Auscultation
Cardiac: Other (holosystolic vs. crescendo-decrescendo murmur near erbs point on my exam )
GI: Soft, Nontender and Normal Bowel Sounds
Musculoskeletal: No Edema
Skin: Other (no jaundice on my exam)
Neuro: AO x 3 and Nonfocal/Grossly Intact
Psych: Calm
[2025-05-05] MEDS: THIAMINE INJECTION 100 MG IV (08:00)
[2025-05-05] MEDS: PROTONIX IV 40 MG IV (08:00)
[2025-05-05] MEDS: NSS (PRESERVATIVE FREE) 10 ML IV (08:00)
[2025-05-05 08:40] LABS: Hematocrit 38.2 % (39.0-52.0); Hemoglobin 12.9 g/dL (13.0-18.0); Mean Corp Hgb Conc. 33.8 g/dL (33.0-37.0); Mean Corpuscular Volume 91.0 fL (80.0-94.0); Platelet Count 319 10^3/uL (130-400); Red Cell Dist. Width 12.5 % (11.5-14.5)
--- NOTE | 2025-05-05 08:51 | W.SUR.PREOP ---
Pre-Operative Surgical Note
-
I have examined this patient prior to the performance of the scheduled procedure.
The patient's condition is unchanged from the time of the current History and
Physical and the patient is able to undergo the scheduled procedure.
[2025-05-05 09:11] LABS: ALT (SGPT) 564 U/L (0-50); AST (SGOT) 170 U/L (17-59); Albumin 3.4 g/dl (3.5-5.0); Alkaline Phosphatase 140 U/L (38-126); Blood Urea Nitrogen 9 mg/dl (9-20); Calcium 8.8 mg/dl (8.4-10.2); Carbon Dioxide 27 mmol/L (22-30); Chloride 105 mmol/L (98-107); Estimated Creatinine Clearance 81 ml/min; Glucose 98 mg/dl (70-99); Potassium 3.8 mmol/L (3.5-5.1); Sodium 137 mmol/L (135-145); Total Protein 6.2 g/dl (6.3-8.2); eGFR > 60.00
--- NOTE | 2025-05-05 10:29 | W.PN.GI.CBS2 ---
Today's Communication / Plan
-
pt feeling better no abdominal pain
s/p EUS and ERCP as noted without filling defect, pancreatic stranding, abnormal echotexture of liver, duodenal ulcers
LFT's continued improvement
for altagracia today
with DU check H pylori stools ag
pt was stated on PPI this am by surgery - stool study may not be accurate
minimal NSAID use with 2 dose several days prior to admission
hbg stable 12.9
family updated
Assessment / Plan
-
Summary: 79 yo male presents with two weeks of episodic RUQ pain increasing in intensity. Also noted dark urine. AST 863, ALT 1012, TB 3.1, AP 167. US shows gallstones and sludge, mild GBWT, mild IHDD. Pain relieved with meds. WBC 8.1.
05/01 US- Fatty liver. Cholelithiasis, GB sludge with mild GBWT. Mild IHDD
05/02 MRI- Choledocholithiasis and sludge in CBD. Acute cholangitis with IHDD/EHDD. Acute/chronic cholecystitis.
05/04- EUS - Pancreatic parenchymal abnormalities consisting of hyperechoic strands, hyperechoic foci and diffuse echogenicity were noted in the pancreatic head and entire pancreas. The visualized portion of bile duct showed thickened wall but
no stone. There was small segment of bile duct which could not be visualized. There was no sign of significant pathology in the ampulla. There was diffuse abnormal echotexture in the left lobe of the liver and in the visualized portion of the
liver. This was characterized by a hyperechoic appearance. No specimens collected.
05/04 ERCP Duodenal ulcers. Cholecystolithiasis was found. The cholangiogram showed normal caliber bile duct without filling defects. A biliary sphincterotomy was performed. The biliary tree was swept and small amount of sludge was found.
Impression:
Choledocholithiasis s/p ERCP with no filling defect
elevated LFT with improvement
duodenal ulcers
RUQ pain- resolved
Abnl LFTs
Gallstones. Mild IHDD
PLAN:
pt feeling better no abdominal pain
s/p EUS and ERCP as noted without filling defect, pancreatic stranding, abnormal echotexture of liver, duodenal ulcers
LFT's continued improvement
for altagracia today
with DU check H pylori stools ag
pt was stated on PPI this am by surgery - stool study may not be accurate
minimal NSAID use with 2 dose several days prior to admission
hbg stable 12.9
family updated
Subjective
Subjective
Date of Service: May 05, 2025
05/03 brown stool, NPO for OR, abdominal pain resolved -- denies complaints of dysphagia
Objective
Data Reviewed
Laboratory Data:
Laboratory Results
05/05/25 08:08
05/05/25 08:08
Laboratory Results
Magnesium 2.3 mg/dl (1.6-2.3) 05/03/25 07:00
Total Bilirubin 1.3 mg/dl (0.2-1.3) 05/05/25 08:08
AST 170 U/L (17-59) H 05/05/25 08:08
ALT 564 U/L (0-50) H* 05/05/25 08:08
Alkaline Phosphatase 140 U/L (38-126) H 05/05/25 08:08
Lipase 251 U/L (23-300) 05/01/25 10:20
Vital Signs and I&O:
Vital Signs
Temp Pulse Resp BP Pulse Ox
98.3 F 74 16 156/86 98
05/05/25 07:33 05/05/25 07:33 05/05/25 07:33 05/05/25 07:33 05/05/25 08:10
I&O
05/04/25 05/05/25 05/06/25
06:59 06:59 06:59
Intake Total 3490 / 3490 100 / 100
Output Total 1600 / 1600 860 / 860
Balance 1890 / 1890 -760 / -760
Physical Exam
Physical Exam
HEENT: Anicteric and Moist mucous membranes
Cardiology: Normal Sinus Rhythm
Pulmonary: Clear
GI: Soft, Non Distended and Non Tender
Extremities: No Edema
Neuro: Non Focal
--- NOTE | 2025-05-05 11:32 | PTCARENOTE ---
Second set of CHG wipes administered for OR.
--- NOTE | 2025-05-05 15:03 | W.IMMPOSTOP ---
Surgical Immed Post Op Note
-
Primary Surgeon: Edi Diaz MD
Assisting Surgeon: None
Pre-op Diagnosis: Choledocholithiasis, cholelithiasis
Post-op Diagnosis: Severe chronic cholecystitis, bile duct injury
Procedure Performed:
1. Laparoscopic cholecystectomy with cholangiogram
2. Laparoscopic repair of a bile duct injury
Anesthesia Type: General
Specimen / Cultures: Gallbladder and contents
Estimated Blood Loss: 53 cc
Complications: Suspected avulsion of the cystic duct off of the common bile duct with sidewall injury
Operative Findings: Severe chronically inflamed gallbladder. Top-down approach. Large stiff liver with limited mobility, additional 5 mm port placed to assist with exposure. Cystic artery identified and clipped. True cystic duct not identified,
suspected avulsion of the cystic duct from the takeoff of the common bile duct. Cholangiogram performed showed no distal filling defects with free flow of contrast into the duodenum as well as contrast into the hepatic bile ducts. Sidewall injury
repaired with a [id number] 4-0 PDS suture. 19 [place] round Saurav drain placed and secured to the skin with a 2-0 nylon. Floseal applied in the fossa. 1 g of TXA given.
POST OP PLAN:
Imaging: None
Labs: AM CMP, CBC
Diet: Clears
Analgesia: Tylenol 650mg q6 [place], Dilaudid 0.5mg q2h PRN
Neuro/vascular checks: Per unit protocol
AC/AP: Hold Therapeutic AC, Ok for DVT PPx
Activity: Ad Annmarie
Wound/Incisions/Drains: Routine, JOSÉ to bulb suction
Abx: Continue Zosyn
Dispo: RNF, GI reconsulted about possible ERCP/stent later this week.
--- NOTE | 2025-05-05 16:05 | PTCARENOTE ---
Received pt from PACU in bed, A,A+O. No complaints at present. 4 lap sites intact with glue and RLQ JOSÉ site dressing D+I. JOSÉ draining bloody drainage. IVF infusing
[2025-05-05] MEDS: FOLVITE 50.2 MG IV (16:31)
--- NOTE | 2025-05-05 16:31 | OR.RPT ---
Operative Report
Operative Report
Patient Name: Papo Rios
: 1945
Date of Operation: 05/05/2025
Preoperative Diagnosis: Choledocholithiasis, cholelithiasis
Postoperative Diagnosis: Severe chronic cholecystitis, bile duct injury
Procedure(s):
1. Laparoscopic Cholecystectomy with Cholangiogram +22 modifier
2. Laparoscopic repair of a bile duct injury
Surgeon(s):
Dr. Diaz
Office Machine Inspector(s):
SKYLER Delcid
Anesthesia: General
Estimated Blood Loss: 53 cc
Urine Output: None
Drains/Lines/Implants: 19 Egyptian round Saurav drain
Specimens:
1. Gallbladder and contents
HPI/Surgical Indications:
This is an 79-year-old male who presented with right upper quadrant pain and elevated LFTs. Exam, labs and imaging are consistent with choledocholithiasis. The patient was taken for an ERCP on 05/04/2025 with no CBD stones identified, they likely
passed prior to the procedure. Risks/Benefits/Alternatives were then discussed regarding cholecystectomy at length, and the patient consented to proceed with surgery.
Operative Findings: Severe chronically inflamed gallbladder. Top-down approach. Large stiff liver with limited mobility, additional 5 mm port placed to assist with exposure. Cystic artery identified and clipped. True cystic duct not identified,
suspected avulsion of the cystic duct from the takeoff of the common bile duct. Cholangiogram performed showed no distal filling defects with free flow of contrast into the duodenum as well as contrast into the hepatic bile ducts. Sidewall injury
repaired with a [id number]-zr-[id number] 4-0 PDS suture. 19 Egyptian round Saurav drain placed and secured to the skin with a 2-0 nylon. Floseal applied in the fossa. 1 g of TXA given.
Procedure Description:
The patient was brought to the Operating Room and placed in the supine position. Following uneventful induction of general endotracheal anesthesia, an orogastric tube was placed. The abdomen was prepped and draped in the usual sterile fashion. A
timeout was performed confirming the procedure, consent, and that IV antibiotics were infused and sequential compression devices were confirmed to be on. The abdomen was entered using a left subcostal Veress technique which required a single pass
followed by a 5 mm right upper quadrant Optiview trocar. Pneumoperitoneum to 15 mmHg pressure was obtained without difficulty and we confirmed that no injury had occurred during our entry. The patient was positioned in reverse Trendelenberg and
rotated with the right side up slightly. Two 5 mm trocars were then placed along the right subcostal margin, followed by a 12 mm port in the epigastrium. Initially it was difficult to visualize the gallbladder as there was severe adhesions in the
surrounding fat over the fundus. These were carefully lysed and peeled down. Near the fundus on the lateral side as we were peeling down one of the adhesions rent appeared in the gallbladder with extrusion of multiple gallstones which were
removed. A 4 x 4 Ray-Acosta was placed at the base of the dissection to help catch any loose stones. The fundus of the gallbladder was grasped and extended cephalad. We were able to dissect most of the adhesions off of the gallbladder however there
was significant scar tissue in the cystic triangle precluding safe dissection so we elected to do a top-down cholecystectomy. The gallbladder was freed from the liver roughly skilled nursing down. The sulcus of Rouviere's was identified and used as a
transection point. I could identify the infundibulum which was freed off of the duodenum. While coming across the gallbladder there was a fair amount of bleeding from the cystic artery this was controlled and clipped. An additional 5 mm port was
placed in the right upper quadrant to assist with retraction as the liver was heavy and fairly immobile. As we rotated the gallbladder which appeared to be folded on itself, pinpoint area of bile could be seen emanating from what was likely the
common bile duct which was concerning for an avulsion of the cystic duct off of the CBD. We were able to eventually divide the gallbladder but no obvious cystic duct remnant could be identified, though there was a large stone stuck in the neck of
the gallbladder. The opening into the bile duct was slightly dilated and a cholangiocatheter was passed through it into the CBD and a C arm was draped and brought into the field. An intraoperative cholangiogram was performed and noted to have free
flow of contrast both distally into the CBD and duodenum as well as proximally into the hepatic ducts. I did try to back out the cholangiocatheter under fluoroscopy but was not able to identify any clear remnant cystic duct stump. At this point I
pulled up his recent ERCP images which showed a patent cystic duct emanating high on the common bile duct, corresponding to the level of this bile leak reinforcing my suspicion that this was a cystic duct avulsion. I determined this was a type D
Strasberg injury to the common bile duct. This injury was secondary to the degree of inflammation in the cystic triangle and inherent to the operation. No other concomitant injury was identified.
At this point I repaired the duct with a bpsewc-ek-sxcod 4-0 Maxon suture. And the area was thoroughly irrigated and suctioned until clear. A fresh 4 x 4 was placed at the hilum while continued on with the operation. The gallbladder bed was
cauterized. Inspection of the surrounding area was made to ensure any residual gallstones were removed and a few were identified. At this point the gallbladder was placed in a large Endo Catch bag and removed via the 12 mm port which was closed
with 0 Maxon suture but not tied. The port was replaced. The 4 x 4 and the fossa remained clear with no bile staining and was removed. 1 g of TXA was administered by anesthesia to assist with hemostasis and this inflamed mildly oozing field.
Floseal was placed in the fossa to ensure hemostasis. A 19 Egyptian round Saurav drain was then introduced through the right lower quadrant port and passed underneath the right lobe of the liver and across the surgical field. This was secured to the
skin with a 2-0 nylon suture. All remaining trocars were then removed and the pneumoperitoneum was evacuated. The 12 mm trocar site was closed. All trocar sites were closed at the skin level using 4-0 Monocryl followed by Dermabond. Overall, the
patient tolerated the procedure well and was taken to the Recovery Room postoperatively in stable condition.
I was the attending physician and performed the procedure with assistance of the PA above. They were required due to the complexity of the procedure. During the procedure they assisted with port placement, gallbladder retraction, holding camera and
skin closure. I was present for all portions of the case, excluding skin closure.
A 22 modifier is being requested for this procedure as this required significantly more time, effort and adjunctive instruments, materials and maneuvers to safely remove this patient's very chronically inflamed gallbladder.
Edi Diaz MD
--- NOTE | 2025-05-05 16:48 | CM ---
Patient out of room when CM attempted to visit. CM will continue to follow for discharge planning needs.
Plan; home with VN vs home with no needs
[2025-05-05] MEDS: LOVENOX 40 MG SC (17:34)
[2025-05-05] MEDS: APRESOLINE 10 MG IV (18:33)
[2025-05-05] MEDS: TYLENOL 650 MG PO (19:28)
[2025-05-06 01:25] VITALS: BP 148/98
[2025-05-06] MEDS: ZOSYN 50 IV ×4 (02:13→19:29)
[2025-05-06 03:00] VITALS: BP 132/74
[2025-05-06] MEDS: NSS 1000 IV ×2 (03:06→11:24)
[2025-05-06 07:15] VITALS: BP 169/102
--- NOTE | 2025-05-06 07:30 | W.PN.HOSP.TC ---
Addendum entered and electronically signed by Sarah Beth Stahl MD 05/06/25 15:16:
I saw and evaluated the patient independently. I reviewed and discussed the resident�s note and agree with findings and plan as documented by Dr. Holguin.
GENERAL: well developed, well nourished, male in no apparent distress
HEENT: NC/AT
HEART: regular rate and rhythm, +S1, +S2, BRITNI
LUNGS : clear to auscultation bilaterally
ABDOM: soft, nontender, nondistended, + bowel sounds--post op
EXT: no cyanosis, clubbing, or edema
NEUROLOGIC: grossly intact
Choledocholithiasis/Acute on chronic cholecystitis/Acute cholangitis--s/p ERCP 05/04 and lap altagracia 05/05--complicated by Suspected avulsion of the cystic duct off of the common bile duct with sidewall injury (repaired)--GI reconsulted about possible
ERCP with stent placement, plans are for tomorrow 05/07/25--clear liquids per surgery--hold Anticoagulation--cont IV zosyn/protonix
Dyslipidemia- At home, moderate atorvastatin- No known ASCVD history- Encouraged low-fat diet
Aortic stenosis- Echocardiogram on 06/05/2024 comments on aortic stenosis--meds as able
Essential hypertension- No PMH, no home medications- prn hydralazine
Fibromyalgia- Not currently on home medications- Appears stable
DVT proph -- SQ Lovenox
Code status -- Full code
Original Note:
Today's Communication/Plan
-
- plan for ERCP with GI tomorrow, 05/07
- CLD, NPO @ [place]
- per surgery, continue Zosyn
Assessment / Plan
Assessment / Plan
79 yo M PMH HLD p/w RUQ pain found to have choledocholithiasis, acute cholangitis, and acute on chronic cholecystitis on MRCP s/p ERCP s/p lap cholecystectomy
#Choledocholithiasis
#Acute on chronic cholecystitis
#Acute cholangitis
- Presented with RUQ discomfort, intermittent for 2 weeks worse with cough
- MRCP did show choledocholithiasis with signs of acute on chronic cholecystitis and cholangitis
- ERCP on 05/04/2025
- lap cholecystectomy on 05/05/2025
- LFTs today: ALT 586 and AST 408, Tbili down to 1.8; AlkPhos of 174
- Continue with IV Zosyn, IV pantoprazole
- monitor CBC, temperature curve, LFTs, serial abdomen exams
- per surgery note, GI is following with plan for ERCP tomorrow, 05/07
- CLD, NPO @ [place]
#Dyslipidemia
- At home, moderate atorvastatin
- No known ASCVD history
- Encouraged low-fat diet
# Aortic stenosis
- Echocardiogram on 06/05/2024 comments on aortic stenosis
#Primary hypertension
- No PMH, no home medications
- prn hydralazine
#Fibromyalgia
- Not currently on home medications
- Appears stable
Diet: CLD
DVT: SQ Lovenox
Code: Full code
Dispo: Home when medically stable
Anticipated Discharge: 24 - 48 hours
Subjective/Interval History
-
Date of Service: May 06, 2025
lap altagracia uncomplicated with JOSÉ drain of serosanguinous
per op note, GI will be doing ERCP for stent placement.
Objective Data
-
Labs:
Laboratory Results
05/06/25
07:11
WBC Pending
Hgb Pending
Hct Pending
Plt Count Pending
Sodium Pending
Potassium Pending
Chloride Pending
Carbon Dioxide Pending
BUN Pending
Creatinine Pending
Glucose Pending
Calcium Pending
Total Bilirubin Pending
AST Pending
ALT Pending
Alkaline Phosphatase Pending
Hgb 12.9
AST 408
ALT 586
Alkphos 174
Tbili 1.8
Lap cholecystectomy 05/05/2025
Operative Findings: Severe chronically inflamed gallbladder. Top-down approach. Large stiff liver with limited mobility, additional 5 mm port placed to assist with exposure. Cystic artery identified and clipped. True cystic duct not identified,
suspected avulsion of the cystic duct from the takeoff of the common bile duct. Cholangiogram performed showed no distal filling defects with free flow of contrast into the duodenum as well as contrast into the hepatic bile ducts. Sidewall injury
repaired with a [id number]-uo-tdmoq 4-0 PDS suture. 19 Uzbek round Saurav drain placed and secured to the skin with a 2-0 nylon. Floseal applied in the fossa. 1 g of TXA given.
Vital Signs:
Vital Signs
Temp Pulse Resp BP Pulse Ox
98.3 F 91 18 132/74 96
05/06/25 03:00 05/06/25 03:00 05/06/25 03:00 05/06/25 03:00 05/06/25 03:00
I&O
05/05/25 05/06/25 05/07/25
06:59 06:59 06:59
Intake Total 100 / 100 2160 / 2160
Output Total 860 / 860 1673 / 1673
Balance -760 / -760 487 / 487
Review of Systems
-
History Source: Patient
Constitutional: Reports No Symptoms
EENT: Reports No Symptoms Reported
Respiratory: Reports No Symptoms
Cardiac: Reports No Symptoms
Abdomen/GI: Reports No Symptoms
Musculoskeletal: Reports No Symptoms
Neuro: Reports No Symptoms
Physical Exam
-
General: Conversant
HEENT: Normocephalic
Respiratory: Clear to Auscultation
GI: Soft, Nontender, Normal Bowel Sounds, Distended and Other (incisions are intact; JOSÉ drain present)
Musculoskeletal: No Edema
Neuro: Awake, Alert and Nonfocal/Grossly Intact
Psych: Calm
[2025-05-06 07:37] LABS: Hematocrit 37.1 % (39.0-52.0); Hemoglobin 12.9 g/dL (13.0-18.0); Mean Corp Hgb Conc. 34.8 g/dL (33.0-37.0); Mean Corpuscular Volume 89.2 fL (80.0-94.0); Nucleated Red Blood Cells % 0 % (-); Platelet Count 332 10^3/uL (130-400); Red Cell Dist. Width 12.6 % (11.5-14.5)
[2025-05-06] MEDS: NSS (PRESERVATIVE FREE) 10 ML IV (07:40)
[2025-05-06] MEDS: PROTONIX IV 40 MG IV (07:40)
[2025-05-06] MEDS: THIAMINE INJECTION 100 MG IV (07:41)
[2025-05-06 08:07] LABS: ALT (SGPT) 586 U/L (0-50); AST (SGOT) 408 U/L (17-59); Albumin 3.2 g/dl (3.5-5.0); Alkaline Phosphatase 174 U/L (38-126); Blood Urea Nitrogen 6 mg/dl (9-20); Calcium 8.6 mg/dl (8.4-10.2); Carbon Dioxide 26 mmol/L (22-30); Chloride 107 mmol/L (98-107); Estimated Creatinine Clearance 95 ml/min; Glucose 96 mg/dl (70-99); Potassium 3.7 mmol/L (3.5-5.1); Sodium 136 mmol/L (135-145); Total Protein 6.0 g/dl (6.3-8.2); eGFR > 60.00
[2025-05-06 09:30] VITALS: BP 148/86
--- NOTE | 2025-05-06 12:30 | W.PN.GS2 ---
Today's Communication / Plan
-
Abx
CLD
NPO@[place]
Assessment / Plan
-
79M POD1 s/p lap altagracia with cholang with suspected avulsion of cystic duct
AFVSS, clinically well, drain ss (non bilious)
Plan:
Gastroenterology following with plans for ERCP and stent tomorrow
OK for CLD, NPO at [place], reg diet post ERCP
C/W ABX
IVF as per primary team
Lovenox sq for VTE ppx
Subjective Data
-
Date of Service: May 06, 2025
AFVSS, feels improved, pain controlled, OOBTC, colt CLD
Objective Data
-
Intake and Output
05/05/25 05/06/25 05/07/25
06:59 06:59 06:59
Intake Total 100 / 100 2160 / 2160
Output Total 860 / 860 1673 / 1673 245 / 245
Balance -760 / -760 487 / 487 -245 / -245
Intake:
Oral fluids 60 / 60
IV fluids (Total) 100 / 100 1800 / 1800
LR 100 / 100
Normosol 100 / 100
IV piggybacks 300 / 300
Output:
Drain Output (Total) 73 / 73 20 / 20
Right Lower Abdomen Armond- 73 / 73 20 / 20
Pitts
Urine, Voided 860 / 860 1600 / 1600 225 / 225
Other:
Number of approximated MODERATE 4 3
amounts of urine
Vital Signs
Temp Pulse Resp BP Pulse Ox
98.2 F 93 18 148/86 95
05/06/25 07:15 05/06/25 09:30 05/06/25 07:15 05/06/25 09:30 05/06/25 07:15
Lab Results
05/06/25 07:11
05/06/25 07:11
Calcium 8.6 mg/dl (8.4-10.2) 05/06/25 07:11
Magnesium 2.3 mg/dl (1.6-2.3) 05/03/25 07:00
Total Bilirubin 1.8 mg/dl (0.2-1.3) H 05/06/25 07:11
Direct Bilirubin 2.0 mg/dl (0.0-0.4) H 05/01/25 10:20
AST 408 U/L (17-59) H 05/06/25 07:11
ALT 586 U/L (0-50) H* 05/06/25 07:11
Alkaline Phosphatase 174 U/L (38-126) H 05/06/25 07:11
Total Protein 6.0 g/dl (6.3-8.2) L 05/06/25 07:11
Albumin 3.2 g/dl (3.5-5.0) L 05/06/25 07:11
Physical Exam
-
Gen: NAD
Abd: soft, protuberant, mild approp ttp, incisions cdi, drain ss (non-bilious)
Patient has a cade catheter: No
Patient has a central line: No
--- NOTE | 2025-05-06 13:00 | W.PN.GI.CBS2 ---
Today's Communication / Plan
-
ercp tomorrow
Assessment / Plan
-
79 yo male presents with two weeks of episodic RUQ pain increasing in intensity. Also noted dark urine. AST 863, ALT 1012, TB 3.1, AP 167. US shows gallstones and sludge, mild GBWT, mild IHDD. Pain relieved with meds. WBC 8.1.
05/01 US- Fatty liver. Cholelithiasis, GB sludge with mild GBWT. Mild IHDD
05/02 MRI- Choledocholithiasis and sludge in CBD. Acute cholangitis with IHDD/EHDD. Acute/chronic cholecystitis.
05/04- EUS - Pancreatic parenchymal abnormalities consisting of hyperechoic strands, hyperechoic foci and diffuse echogenicity were noted in the pancreatic head and entire pancreas. The visualized portion of bile duct showed thickened wall but
no stone. There was small segment of bile duct which could not be visualized. There was no sign of significant pathology in the ampulla. There was diffuse abnormal echotexture in the left lobe of the liver and in the visualized portion of the
liver. This was characterized by a hyperechoic appearance. No specimens collected.
05/04 ERCP Duodenal ulcers. Cholecystolithiasis was found. The cholangiogram showed normal caliber bile duct without filling defects. A biliary sphincterotomy was performed. The biliary tree was swept and small amount of sludge was found.
05/05 OR Severe chronically inflamed gallbladder. Laparoscopic repair of a bile duct injury.
Impression:
Choledocholithiasis s/p ERCP with no filling defect likely passed stone
elevated LFT with improvement
duodenal ulcers
RUQ pain- resolved
Abnl LFTs
Gallstones. Severely chronically inflammed gallbladder
PLAN:
pt feeling better no abdominal pain
s/p EUS and ERCP as noted without filling defect, pancreatic stranding, abnormal echotexture of liver, duodenal ulcers
LFT's mild increase today post-CCY
D/w Dr. Diaz, Dr. Silva, Dr. Rai plan to to ERCP with another stent tomorrow - r/a/b of ERCP reviewed with pt risks including bleeding, infection, perforation, pancreatitis
with DU check H pylori stools ag
pt was stated on PPI this am by surgery - stool study may not be accurate
minimal NSAID use with 2 dose several days prior to admission
hbg stable 12.9
family updated
Subjective
Subjective
Date of Service: May 06, 2025
no pain, n/v, fevers
Objective
Data Reviewed
Laboratory Data:
Laboratory Results
05/06/25 07:11
05/06/25 07:11
Laboratory Results
Magnesium 2.3 mg/dl (1.6-2.3) 05/03/25 07:00
Total Bilirubin 1.8 mg/dl (0.2-1.3) H 05/06/25 07:11
AST 408 U/L (17-59) H 05/06/25 07:11
ALT 586 U/L (0-50) H* 05/06/25 07:11
Alkaline Phosphatase 174 U/L (38-126) H 05/06/25 07:11
Lipase 251 U/L (23-300) 05/01/25 10:20
Vital Signs and I&O:
Vital Signs
Temp Pulse Resp BP Pulse Ox
98.2 F 93 18 148/86 95
05/06/25 07:15 05/06/25 09:30 05/06/25 07:15 05/06/25 09:30 05/06/25 07:15
I&O
05/05/25 05/06/25 05/07/25
06:59 06:59 06:59
Intake Total 100 / 100 2160 / 2160
Output Total 860 / 860 1673 / 1673 245 / 245
Balance -760 / -760 487 / 487 -245 / -245
Physical Exam
Physical Exam
GI: Non Distended and Non Tender
[2025-05-06 13:24] VITALS: BMI 27.8
[2025-05-06] MEDS: FOLVITE 50.2 MG IV (13:54)
--- NOTE | 2025-05-06 15:07 | CM ---
Patient seen at bedside with physicians on [facility]. patient also present. Patient for further medical treatment plan. CM will continue to follow for discharge planning needs.
Plan; home with no needs vs home with VN if needed.
[2025-05-06 15:35] VITALS: BP 158/92
[2025-05-06] MEDS: LOVENOX 40 MG SC (17:34)
[2025-05-06 23:05] VITALS: BP 155/85
[2025-05-07] VITALS (14 sets, daily range): BP systolic 124–188; BP diastolic 78–107
[2025-05-07] MEDS: ZOSYN 50 IV ×3 (02:16→19:26)
[2025-05-07] MEDS: NSS 1000 IV ×2 (02:16→17:05)
--- NOTE | 2025-05-07 07:14 | W.PN.HOSP.TC ---
Addendum entered and electronically signed by Sarah Beth Stahl MD 05/07/25 14:39:
I saw and evaluated the patient independently. I reviewed and discussed the resident�s note and agree with findings and plan as documented by Dr. Holguin.
GENERAL: well developed, well nourished, male in no apparent distress
HEENT: NC/AT
HEART: regular rate and rhythm, +S1, +S2, BRITNI
LUNGS : clear to auscultation bilaterally
ABDOM: soft, nontender, nondistended, + bowel sounds--post op--JOSÉ drain
EXT: no cyanosis, clubbing, or edema
NEUROLOGIC: grossly intact
Choledocholithiasis/Acute on chronic cholecystitis/Acute cholangitis--s/p ERCP 05/04 and lap altagracia 05/05--complicated by Suspected avulsion of the cystic duct off of the common bile duct with sidewall injury (repaired)--GI reconsulted --for ERCP with
stent placement 05/07/25--hold Anticoagulation--cont IV zosyn/protonix
Dyslipidemia- At home, moderate atorvastatin- No known ASCVD history- Encouraged low-fat diet
Aortic stenosis- Echocardiogram on 06/05/2024 comments on aortic stenosis--meds as able
Essential hypertension- No PMH, no home medications- prn hydralazine
Fibromyalgia- Not currently on home medications- Appears stable
DVT proph -- SQ Lovenox
Code status -- Full code
Original Note:
Today's Communication/Plan
-
ERCP with stent today per GI
Assessment / Plan
Assessment / Plan
79 yo M PMH HLD p/w RUQ pain found to have choledocholithiasis, acute cholangitis, and acute on chronic cholecystitis on MRCP s/p ERCP s/p lap cholecystectomy
#Choledocholithiasis
#Acute on chronic cholecystitis
#Acute cholangitis
- Presented with RUQ discomfort, intermittent for 2 weeks worse with cough
- MRCP did show choledocholithiasis with signs of acute on chronic cholecystitis and cholangitis
- ERCP on 05/04/2025
- lap cholecystectomy on 05/05/2025
- LFTs today: ALT 485 and AST 200, Tbili down to 1.4; AlkPhos of 177
- Continue with IV Zosyn, IV pantoprazole
- monitor CBC, temperature curve, LFTs, serial abdomen exams
- ERCP with stent with GI today
- per surgery, when ready for discharge, will be with JOSÉ drain in place to be removed next week
#Dyslipidemia
- At home, moderate atorvastatin
- No known ASCVD history
- Encouraged low-fat diet
# Aortic stenosis
- Echocardiogram on 06/05/2024 comments on aortic stenosis
#Primary hypertension
- No PMH, no home medications
- prn hydralazine
#Fibromyalgia
- Not currently on home medications
- Appears stable
Diet: NPO pending ERCP
DVT: SQ Lovenox
Code: Full code
Dispo: Home when medically stable, no needs
Anticipated Discharge: 24 - 48 hours
Subjective/Interval History
-
Date of Service: May 07, 2025
feels good
Objective Data
-
Labs:
Laboratory Results
05/07/25
06:52
WBC Pending
Hgb Pending
Hct Pending
Plt Count Pending
Sodium Pending
Potassium Pending
Chloride Pending
Carbon Dioxide Pending
BUN Pending
Creatinine Pending
Glucose Pending
Calcium Pending
Total Bilirubin Pending
AST Pending
ALT Pending
Alkaline Phosphatase Pending
Vital Signs:
Vital Signs
Temp Pulse Resp BP Pulse Ox
98.8 F 86 18 155/85 94
05/06/25 23:05 05/06/25 23:05 05/06/25 23:05 05/06/25 23:05 05/06/25 23:05
I&O
05/06/25 05/07/25 05/08/25
06:59 06:59 06:59
Intake Total 2160 / 2160 2380 / 2380
Output Total 1673 / 1673 3270 / 3270
Balance 487 / 487 -890 / -890
Review of Systems
-
History Source: Patient
Constitutional: Reports No Symptoms
EENT: Reports No Symptoms Reported
Respiratory: Reports No Symptoms
Cardiac: Reports No Symptoms
Abdomen/GI: Reports No Symptoms
Musculoskeletal: Reports No Symptoms
Neuro: Reports No Symptoms
Physical Exam
-
General: Conversant
HEENT: Normocephalic
Respiratory: Clear to Auscultation
GI: Soft, Nontender, Normal Bowel Sounds, Distended and Other (incisions are intact; JOSÉ drain present)
Musculoskeletal: No Edema
Neuro: Awake, Alert and Nonfocal/Grossly Intact
Psych: Calm
[2025-05-07] MEDS: PROTONIX IV 40 MG IV (07:56)
[2025-05-07] MEDS: NSS (PRESERVATIVE FREE) 10 ML IV (07:56)
[2025-05-07] MEDS: THIAMINE INJECTION 100 MG IV (07:57)
[2025-05-07 08:32] LABS: Hematocrit 40.7 % (39.0-52.0); Hemoglobin 14.0 g/dL (13.0-18.0); Mean Corp Hgb Conc. 34.4 g/dL (33.0-37.0); Mean Corpuscular Volume 90.2 fL (80.0-94.0); Nucleated Red Blood Cells % 0 % (-); Platelet Count 379 10^3/uL (130-400); Red Cell Dist. Width 12.7 % (11.5-14.5)
[2025-05-07 08:37] LABS: ALT (SGPT) 485 U/L (0-50); AST (SGOT) 200 U/L (17-59); Albumin 3.7 g/dl (3.5-5.0); Alkaline Phosphatase 177 U/L (38-126); Blood Urea Nitrogen 4 mg/dl (9-20); Calcium 8.9 mg/dl (8.4-10.2); Carbon Dioxide 29 mmol/L (22-30); Chloride 103 mmol/L (98-107); Estimated Creatinine Clearance 95 ml/min; Glucose 101 mg/dl (70-99); Potassium 4.1 mmol/L (3.5-5.1); Sodium 135 mmol/L (135-145); Total Protein 6.7 g/dl (6.3-8.2); eGFR > 60.00
--- NOTE | 2025-05-07 09:25 | W.PN.GS2 ---
Addendum entered and electronically signed by Edi Diaz MD 05/07/25 09:31:
Will plan to discharge the patient with a JOSÉ drain, plan for removal in the office next week.
Original Note:
Today's Communication / Plan
-
ERCP today.
Assessment / Plan
-
79M presented with abdominal pain and abnormal LFTs status post ERCP/sphincterotomy though no stones were identified. Now POD2 s/p lap altagracia with cholang with suspected avulsion of cystic duct, and primary repair. Doing well, expected
postoperative course.
AFVSS, clinically well, drain ss (non bilious)
LFTs improved, downtrending
Plan:
Discussed with patient options, will while is stent is not strictly necessary given his clinical picture I do feel this will improve our chances for the primary bile duct repair to heal. Patient agreeable to ERCP.
N.p.o., okay for regular diet post ERCP per GI.
Will continue antibiotics d2/4
IVF as per primary team
Lovenox sq for VTE ppx
Time Spent
Total Time Spent with Patient (in minutes): 15
Subjective Data
-
Date of Service: May 07, 2025
Interval Events:
No acute events overnight. States that the bulb opened up and spilled everywhere on his bed overnight. Slept well. Pain Controlled. Denies Nausea/Vomiting, +bowel function. Tolerating liquid diet.
Objective Data
-
Intake and Output
05/06/25 05/07/25 05/08/25
06:59 06:59 06:59
Intake Total 2160 / 2160 2380 / 2380
Output Total 1673 / 1673 3270 / 3270
Balance 487 / 487 -890 / -890
Intake:
Oral fluids 60 / 60 1080 / 1080
IV fluids (Total) 1800 / 1800 1200 / 1200
Normosol 100 / 100
IV piggybacks 300 / 300 100 / 100
Output:
Drain Output (Total)
Right Lower Abdomen Armond-
Pitts
Urine, Voided 1600 / 1600 3250 / 3250
Other:
Number of approximated MODERATE 3 6
amounts of urine
Vital Signs
Temp Pulse Resp BP Pulse Ox
97.9 F 92 16 168/107 95
05/07/25 07:00 05/07/25 07:00 05/07/25 07:00 05/07/25 07:00 05/07/25 07:00
Lab Results
05/07/25 06:52
05/07/25 06:52
Calcium 8.9 mg/dl (8.4-10.2) 05/07/25 06:52
Magnesium 2.3 mg/dl (1.6-2.3) 05/03/25 07:00
Total Bilirubin 1.4 mg/dl (0.2-1.3) H 05/07/25 06:52
Direct Bilirubin 2.0 mg/dl (0.0-0.4) H 05/01/25 10:20
AST 200 U/L (17-59) H 05/07/25 06:52
ALT 485 U/L (0-50) H 05/07/25 06:52
Alkaline Phosphatase 177 U/L (38-126) H 05/07/25 06:52
Total Protein 6.7 g/dl (6.3-8.2) 05/07/25 06:52
Albumin 3.7 g/dl (3.5-5.0) 05/07/25 06:52
Physical Exam
-
GENERAL/NEURO: Awake, Alert, no distress
CHEST: Unlabored breathing on RA
ABDOMEN: Soft, Non-Tender, Non-Distended, JOSÉ serosanguineous
Patient has a cade catheter: No
Patient has a central line: No
--- NOTE | 2025-05-07 10:40 | CM ---
Patient seen at beside
ERCP
discussed VN-has drain
declines VN
IMM explained & signed. In chart
PLAN: Home, no needs, declines VN
[2025-05-07] MEDS: FOLVITE 50.2 MG IV (13:19)
[2025-05-07] MEDS: ZOSYN IV (15:31)
[2025-05-07] MEDS: APRESOLINE 10 MG IV (16:20)
[2025-05-07] MEDS: LOVENOX 40 MG SC (17:07)
[2025-05-08] MEDS: ZOSYN 50 IV ×2 (01:52→08:04)
[2025-05-08] MEDS: NSS 1000 IV (04:07)
[2025-05-08 07:00] VITALS: BP 154/91
--- NOTE | 2025-05-08 07:11 | W.PN.HOSP.TC ---
Addendum entered and electronically signed by Sarah Beth Stahl MD 05/08/25 18:48:
I saw and evaluated the patient independently. I reviewed and discussed the resident�s note and agree with findings and plan as documented by Dr. Holguin.
GENERAL: well developed, well nourished, male in no apparent distress
HEENT: NC/AT
HEART: regular rate and rhythm, +S1, +S2, BRITNI
LUNGS : clear to auscultation bilaterally
ABDOM: soft, nontender, nondistended, + bowel sounds--post op--JOSÉ drain
EXT: no cyanosis, clubbing, or edema
NEUROLOGIC: grossly intact
Choledocholithiasis/Acute on chronic cholecystitis/Acute cholangitis--s/p ERCP 05/04 and lap altagracia 05/05--complicated by Suspected avulsion of the cystic duct off of the common bile duct with sidewall injury (repaired)--GI reconsulted --s/p ERCP with
stent placement 05/07/25--restart Anticoagulation--OK for d/c with Augmentin x 1 more day per surgery
Dyslipidemia- At home, moderate atorvastatin- No known ASCVD history- Encouraged low-fat diet
Aortic stenosis- Echocardiogram on 06/05/2024 comments on aortic stenosis--meds as able
Essential hypertension- No PMH, no home medications- prn hydralazine
Fibromyalgia- Not currently on home medications- Appears stable
DVT proph -- SQ Lovenox
Code status -- Full code
Original Note:
Today's Communication/Plan
-
discharge to home with VN
Assessment / Plan
Assessment / Plan
79 yo M PMH HLD p/w RUQ pain found to have choledocholithiasis, acute cholangitis, and acute on chronic cholecystitis on MRCP s/p ERCP s/p lap cholecystectomy
#Choledocholithiasis
#Acute on chronic cholecystitis
#Acute cholangitis
- Presented with RUQ discomfort, intermittent for 2 weeks worse with cough
- MRCP did show choledocholithiasis with signs of acute on chronic cholecystitis and cholangitis
- ERCP on 05/04/2025
- lap cholecystectomy on 05/05/2025
- ERCP with stent on 05/07/2025
- today, able to tolerate diet and denies pain
- LFTs today: ALT 346 and AST 112, Tbili 1.2; AlkPhos of 162 (likely reactive to the procedures)
- both GI and surgery agreed that patient is okay for discharge today
- After discussion with surgery, switched to PO augmentin to complete 4th day of antibiotics on 05/09/2025
- per surgery, JOSÉ drain in place to be removed next week
- patient will have VN for drain management
#Dyslipidemia
- At home, moderate atorvastatin
- No known ASCVD history
- Encouraged low-fat diet
# Aortic stenosis
- Echocardiogram on 06/05/2024 comments on aortic stenosis
#Primary hypertension
- No PMH, no home medications
- VSS
#Fibromyalgia
- Not currently on home medications
- Appears stable
Diet: CLD
DVT: SQ Lovenox
Code: Full code
Dispo: Home with VN
Anticipated Discharge: Today
Subjective/Interval History
-
Date of Service: May 08, 2025
feels good
Objective Data
-
Labs:
Laboratory Results
05/08/25
06:00
WBC Pending
Hgb Pending
Hct Pending
Plt Count Pending
Sodium Pending
Potassium Pending
Chloride Pending
Carbon Dioxide Pending
BUN Pending
Creatinine Pending
Glucose Pending
Calcium Pending
Total Bilirubin Pending
AST Pending
ALT Pending
Alkaline Phosphatase Pending
Vital Signs:
Vital Signs
Temp Pulse Resp BP Pulse Ox
97.7 F 84 20 140/100 97
05/07/25 23:00 05/07/25 23:00 05/07/25 23:00 05/07/25 23:00 05/07/25 23:00
I&O
05/07/25 05/08/25 05/09/25
06:59 06:59 06:59
Intake Total 2380 / 2380 175 / 175
Output Total 3270 / 3270 585 / 585
Balance -890 / -890 -410 / -410
Review of Systems
-
History Source: Patient
Constitutional: Reports No Symptoms
EENT: Reports No Symptoms Reported
Respiratory: Reports No Symptoms
Cardiac: Reports No Symptoms
Abdomen/GI: Reports No Symptoms
Musculoskeletal: Reports No Symptoms
Neuro: Reports No Symptoms
[2025-05-08] MEDS: PROTONIX IV 40 MG IV (08:05)
[2025-05-08] MEDS: THIAMINE INJECTION 100 MG IV (08:05)
[2025-05-08] MEDS: NSS (PRESERVATIVE FREE) 10 ML IV (08:05)
[2025-05-08 08:22] LABS: Hematocrit 40.1 % (39.0-52.0); Hemoglobin 13.5 g/dL (13.0-18.0); Mean Corp Hgb Conc. 33.7 g/dL (33.0-37.0); Mean Corpuscular Volume 87.9 fL (80.0-94.0); Nucleated Red Blood Cells % 0 % (-); Platelet Count 373 10^3/uL (130-400); Red Cell Dist. Width 12.7 % (11.5-14.5)
--- NOTE | 2025-05-08 08:54 | W.PN.GS2 ---
Today's Communication / Plan
-
c/w JOSÉ
Assessment / Plan
-
79M presented with abdominal pain and abnormal LFTs status post ERCP/sphincterotomy though no stones were identified.
POD 3 s/p lap altagracia with cholang with suspected avulsion of cystic duct, and primary repair.
PPD 4, 1 ERCP, s/p CBD stent placement on 05/07
Doing well, expected postoperative course.
AFVSS, clinically well, drain ss (non bilious)
No leukocytosis, stable h/h
LFTs pending
Plan:
Diet as per GI, ok to ADAT from surgical standpoint
Will continue antibiotics d3/
IVF as per primary team
c/w JOSÉ drain
Lovenox sq for VTE ppx
Subjective Data
-
Date of Service: May 08, 2025
Pt seen and examined at bedside. Denies n/v. Starting to pass gas this am. Denies pain.
Objective Data
-
Intake and Output
05/07/25 05/08/25 05/09/25
06:59 06:59 06:59
Intake Total 2380 / 2380 1375 / 1375
Output Total 3270 / 3270 585 / 585
Balance -890 / -890 790 / 790
Intake:
Oral fluids 1080 / 1080
IV fluids (Total) 1200 / 1200 1275 / 1275
LR 75 / 75
IV piggybacks 100 / 100 100 / 100
Output:
Drain Output (Total)
Right Lower Abdomen Armond-
Pitts
Urine, Voided 3250 / 3250 575 / 575
Other:
Number of approximated MODERATE 6 6
amounts of urine
Vital Signs
Temp Pulse Resp BP Pulse Ox
97.5 F 81 18 154/91 97
05/08/25 07:00 05/08/25 07:00 05/08/25 07:00 05/08/25 07:00 05/08/25 07:00
Lab Results
05/08/25 07:27
Calcium 8.9 mg/dl (8.4-10.2) 05/07/25 06:52
Magnesium 2.3 mg/dl (1.6-2.3) 05/03/25 07:00
Total Bilirubin 1.4 mg/dl (0.2-1.3) H 05/07/25 06:52
Direct Bilirubin 2.0 mg/dl (0.0-0.4) H 05/01/25 10:20
AST 200 U/L (17-59) H 05/07/25 06:52
ALT 485 U/L (0-50) H 05/07/25 06:52
Alkaline Phosphatase 177 U/L (38-126) H 05/07/25 06:52
Total Protein 6.7 g/dl (6.3-8.2) 05/07/25 06:52
Albumin 3.7 g/dl (3.5-5.0) 05/07/25 06:52
Physical Exam
-
GENERAL/NEURO: Awake, Alert, no distress
CHEST: Unlabored breathing on RA
ABDOMEN: Soft, Non-Tender, Mildly Distended, JOSÉ serosanguineous. Incisions with intact glue, no erythema
Patient has a cade catheter: No
Patient has a central line: No
[2025-05-08 08:55] LABS: ALT (SGPT) 346 U/L (0-50); AST (SGOT) 112 U/L (17-59); Albumin 3.6 g/dl (3.5-5.0); Alkaline Phosphatase 162 U/L (38-126); Blood Urea Nitrogen 8 mg/dl (9-20); Calcium 9.1 mg/dl (8.4-10.2); Carbon Dioxide 26 mmol/L (22-30); Chloride 106 mmol/L (98-107); Estimated Creatinine Clearance 95 ml/min; Glucose 92 mg/dl (70-99); Potassium 4.4 mmol/L (3.5-5.1); Sodium 135 mmol/L (135-145); Total Protein 6.8 g/dl (6.3-8.2); eGFR > 60.00
[2025-05-08] MEDS: NSS IV (11:15)
[2025-05-08] MEDS: FOLVITE 50.2 MG IV (13:09)
[2025-05-08] MEDS: AUGMENTIN 875 MG/125 MG 1 TABLET PO (13:09)
--- NOTE | 2025-05-08 15:29 | VNURNOTE ---
Home Health Liaison met with patient and spouse at bedside to discuss [facility] nurse/therapy, visits, schedule and homebound status. Patient is agreeable and understands that visits at home will be 2-3 x per week to assess and teach medical
management.
Patient is aware that [facility] will contact them for start of care within a few days after discharge from . Provided contact number for [facility].
[facility] referral completed in [facility].
[2025-05-08 15:52] VITALS: BP 128/66
--- NOTE | 2025-05-08 17:34 | CM ---
Patient seen at bedside with physicians. IMM reviewed and signed form placed on chart. Patient requested [facility] and Liaison followed up and met with patient. CM will continue to follow for discharge planning needs.
Plan; home with [facility] to follow
--- NOTE | 2025-05-08 17:40 | W.DCSUMMARY ---
Addendum entered and electronically signed by Sarah Beth Stahl MD 05/09/25 06:59:
Read, reviewed, and agree. See same day progress note for additional details. Time spent coordinating care, DC planning, review of DC plan of care with resident, transition of care, review of records in EMR, med rec, consults, notes, d/w
consultants, nursing, family, and CM = 37 minutes
Addendum entered and electronically signed by Augie Holguin MD, Resident 05/08/25 18:14:
Addendum to include physical exam:
General: not in acute distress
HEENT: normocephalic
Lungs: CTAB on my exam
CV: systolic murmur present at Erb's point
GI: soft but distended, + bowel sounds, incisions are intact, JOSÉ drain present right side, serosanguinous output
MSK: no lower extremity edema
Neuro: awake, alert, grossly intact
Pysch: calm
Original Note:
Discharge Summary
Discharge Data
Date of Admission: 05/01/25
Date of Discharge: 05/08/25
-
Pending Results: No
Hospital Course
Discharging Physician : Dr. Sarah Beth Stahl, Dr. Augie Holguin
Disposition : Home with VN
Primary care physician : Dilan Connolly
Principal Discharge diagnosis : acute on chronic cholecystitis, choledocholithiasis, possible acute cholangitis
Chronic Discharge diagnosis : HLD, aortic stenosis, essential HTN, fibromyalgia
Hospital Course :
79 yo M PMH HLD p/w RUQ pain found to have acute on chronic cholecystitis, choledocholithiasis, and acute cholangitis, and on MRCP. Gastroenterology and surgery were consulted. He underwent ERCP on 05/04/2025 for sphincterotomy due to suspected
gallstone that had already passed. A laparoscopic cholecystectomy was performed on 05/05/2025, which was complicated by avulsion of the cystic duct. GI then performed ERCP on 05/07/2025 for stent placement empirically because obvious extravasation
of contrast on cholangiogram was not noted.
The following problems were addressed during this admission.
#Acute on chronic cholecystitis
#Choledocholithiasis
#Acute cholangitis
- Presented with RUQ discomfort, intermittent for 2 weeks worse with cough
- MRCP did show choledocholithiasis with signs of acute on chronic cholecystitis and cholangitis
- ERCP on 05/04/2025
- lap cholecystectomy on 05/05/2025 with complication of avulsion of cystic duct
- ERCP with stent on 05/07/2025
- today, able to tolerate diet and denies pain
- LFTs on day of discharge: ALT 346 and AST 112, Tbili 1.2; AlkPhos of 162 (likely reactive to the procedures)
- both GI and surgery agreed that patient is okay for discharge today. per GI, LFTs will normalize over weeks.
- After discussion with surgery, switched to PO augmentin to complete 4th day of antibiotics on 05/09/2025
- per surgery, JOSÉ drain in place to be removed next week in outpatient follow-up
- patient will have VN for drain management
#Dyslipidemia
- At home, moderate atorvastatin
- No known ASCVD history
- Encouraged low-fat diet
# Aortic stenosis
- Echocardiogram on 06/05/2024 comments on aortic stenosis
- Patient is aware and follows-up outpatient for management of this condition
#Primary hypertension
- No PMH, no home medications
- VSS
#Fibromyalgia
- Not currently on home medications
- Appears stable
Important imaging findings :
Abdominal ultrasound 05/01/2025
IMPRESSION:
1. CHOLEDOCHOLITHIASIS and sludge in the common bile duct.
2. ACUTE CHOLANGITIS with intrahepatic and extrahepatic bile duct wall hyperenhancement and mild biliary dilatation.
3. ACUTE on CHRONIC CHOLECYSTITIS with severe diffuse gallbladder wall thickening, pericholecystic inflammation, and stones/sludge in the gallbladder lumen.
4. Mild to moderate right upper quadrant lymphadenopathy.
5. Moderate periduodenal and duodenal inflammation adjacent to the gallbladder.
6. No definitive evidence for cholecystoduodenal fistula.
7. SEVERE DIFFUSE HEPATIC STEATOSIS.
8. SEVERE DIFFUSE PANCREATIC LIPOMATOSIS.
9. Small hiatal hernia.
10. Small bilateral adrenal adenomas.
MRCP 05/02/2025
IMPRESSION:
- Findings compatible with diffuse fatty liver.
- Cholelithiasis and gallbladder sludge with mild gallbladder wall thickening. Negative sonographic Paige's sign. Common bile duct within the limits of normal in caliber. Findings suggesting mild intrahepatic biliary tract dilatation. Consider GI
consultation and/or MRI/MRCP for more complete evaluation.
- Pancreas and mid/distal abdominal aorta significantly obscured, most likely by overlying bowel gas.
Procedure findings :
ERCP 05/04/2025
Impression:
- Duodenal ulcers.
- Cholecystolithiasis was found.
- The cholangiogram showed normal caliber bile duct without filling
defects. A biliary sphincterotomy was performed.
- The biliary tree was swept and small amount of sludge was found.
Laparoscopic cholecystectomy 05/05/2025
Operative Findings: Severe chronically inflamed gallbladder. Top-down approach. Large stiff liver with limited mobility, additional 5 mm port placed to assist with exposure. Cystic artery identified and clipped. True cystic duct not identified,
suspected avulsion of the cystic duct from the takeoff of the common bile duct. Cholangiogram performed showed no distal filling defects with free flow of contrast into the duodenum as well as contrast into the hepatic bile ducts. Sidewall injury
repaired with a [id number] 4-0 PDS suture. 19 [place] round Saurav drain placed and secured to the skin with a 2-0 nylon. Floseal applied in the fossa. 1 g of TXA given.
Complications: Suspected avulsion of the cystic duct off of the common bile duct with sidewall injury
ERCP with stent 05/07/2025
Impression:
- Prior biliary sphincterotomy appeared open. Cholangiogram did not
show obvious extravasation of contrast. However, the decision was
made to empirically place a biliary stent.
- One plastic stent was placed into the common hepatic duct.
Discharge Plan
-
Patient Disposition: Home with Home Care
Discharge Diagnosis/Procedures: acute on chronic cholecystitis, choledocholithiasis, possible acute cholangitis, HLD, aortic stenosis
Condition: Fair
Diet: As tolerated
Additional Diets: If you have loose stools switch in to a low fat diet
Activity: No strenuous activity
Driving Restrictions: As prior to admission
Bathing Restrictions: OK to Shower
Other Services: VN
Activity Restrictions/Additional Instructions:
Instructions following Laparoscopic Cholecystectomy
Please call [phone] if you have any questions or concerns after your surgery.
Wound Care:
Your incisions are covered with skin glue which will come off on its own in 5-10 days.
It is ok to shower the day after your surgery. Do not scrub the incisions, let soap and water wash over them and pat dry.
� Bruising around your incisions is normal.
� Using ice packs will help minimize this swelling.
� No swimming or soaking incisions for 1 week.
� Your stitches will dissolve and do not need to be removed.
Urinary retention:
If you are unable to urinate 6-8 hours after your surgery, please call [phone] to discuss further management.
Activity:
No heavy lifting more than 15 pounds for the next 3 weeks, then you may gradually lift heavier objects as tolerated by discomfort. Otherwise activity as tolerated by your comfort level.
Pain Management:
� You may take 650 milligrams of Tylenol (Max 3 grams per day) every 6 hours.
� You may take 600 milligrams of ibuprofen also every 6 hours. (you can alternate them every 3 hours)
� You may use an ice pack to your incision as needed.
� If you still have pain not controlled by these measures, take your prescription pain medication as prescribed.
Medications:
You may resume your home medications.
Bowel Medications:
Prescription pain medication can make you constipated. If you take this medication, also take colace 100 mg twice daily (this is over the counter). If this is not sufficient, you may take Miralax (polyethylene glycol) to help move your bowels.
Diet:
After your procedure, there are no dietary restrictions. However, you may notice some loose stools with fatty meals for up to 4 weeks after surgery. If this is the case, please adjust to a low fat diet as needed.
Driving restrictions:
No driving if you are taking prescription pain medication or if you think your normal reaction time and attentiveness has been slowed by your surgery.
Things to Look out for:
Worsening Abdominal pain, fever, jaundice, redness or drainage from incision
Call Doctor for:
Please call if you notice worsening redness or drainage from incision(s) lasting longer than 5 days after your surgery, any foul-smelling drainage from the incision, pain not controlled by pain medications, persistent nausea and vomiting, or for any
fevers greater than 101.3 F. The number for questions/concerns is [phone]
Follow-up:
A follow-up appointment will be scheduled with your surgeon in 3-4 weeks. Please call prior to your appointment if you have any questions or concerns. [phone]
JOSÉ DRAIN CARE INSTRUCTIONS
General Information:
Drains help to keep fluid from collecting by removing the extra blood and fluid from under the skin. A drain is temporary. It stays in place until the drainage has slowed down or stopped. Your doctor or nurse will decide when each drain should be
removed: This is usually after each drain has 30cc or less in 24 hours for 2 days in a row. When this happens, you should call the [facility] to schedule an appointment with the nurses to have it/them removed. This is usually not painful
and only takes a few seconds.
How do I care for the drains at home?
Pin your drains to your clothing by using a safety pin through the plastic loop on the top of the bulb. If the drain is not attached to your clothing, it may pull out from under your skin. Also, a drain usually feels more comfortable when it�s
attached. To care for the drain at home, you will have to empty the drain, ``strip�� the drain tubing, and change the dressing if applicable. See the following pages for instructions on how to do this.
What problems may I have with my drain?
� The bulb is not compressed- The bulb may not be squeezed tightly enough, the plug may not be closed securely, or the tube has slipped out a bit and is leaking. Follow the instructions on how to empty the drain.
If the bulb remains expanded, then notify your doctor or nurse during business hours.
� No drainage or sudden decrease in amount of drainage- This is usually due to clots in the drain. Follow the instructions on how to strip the drain tubing.
� The tube accidentally falls out- If this happens, place a dry gauze dressing over the drain site and notify your doctor or nurse during business hours.
� Increased redness, swelling, or heat around the tube insertion site- This may be a sign of infection. Take your temperature: if it is higher than 101F or 38.8C, call your doctor or nurse immediately. Otherwise, notify your doctor or nurse during
business hours and keep the dressing clean and dry.
Post-Surgical Drain Care:
After surgery, you will have one or two drains, called a Armond-Pitts (JOSÉ) drain, placed near the incision. This device collects fluid, under suction, from your surgical area. The drain promotes healing and recovery, and reduces the chance of
infection. The drain will be in place until the drainage slows enough for your body to reabsorb fluid on its own. While you are hospitalized the nursing staff will care for the drain and teach you to continue to do so at home.
How to Empty Your JOSÉ Drain
Note: Wash your hands thoroughly before emptying your drain(s).
� Have the plastic measuring cup from the hospital ready to collect and measure the drainage. Please measure the output at the same two times every 24 hours and record the amount.
� Unpin the drain from your clothing.
Open the top of the drain. Turn the drain upside down and squeeze the contents of the bulb into the measuring cup. Be sure to empty the bulb as completely as possible. Flush the contents in the toilet.
� Use the drain output log chart to record the amount of drainage twice a day or any time the bulb is full. Record the total for 24 hours for each drain you have.
� If you have more than one drain, remember to record the drainage from each drain separately.
� To prevent infection, do not let the stopper or top of the bottle touch the measuring cup or any other surface.
� Use one hand to squeeze all of the air from the drain. With the drain still squeezed, use your other hand to replace the top. This creates the suction necessary to remove the fluids from your body.
� Pin the drain back on your clothing to avoid pulling it out accidently.
� Wash your hands again. Remember to wash your hands before and after the procedure to reduce the risk of infection.
Stripping the Tube
Often the tube may become blocked with products of healing or clot. If you do not have drainage, then:
� Hold the tube near where it is inserted in to the skin with your one hand.
� Use the other hand to hold a pencil and gently squeeze the tubing with the pencil while moving it down toward the drain away from your skin. This forces the more sold material into the bulb for better drainage.
� Repeat as necessary to start the draining again.
Removal of the Tube
� The tube may be removed once a single tube output is less than 30cc (1 oz.) for 24 hours. Please call the office to arrange a time to come in to have the drain removed.
� Please call the office [phone] if the output becomes thicker or has a bad odor or if you have any questions or concerns
Referrals:
Dilan Connolly MD [Family Provider, Family Practice]
Miguelangel Rai MD [Active, Gastroenterology] - in two to four weeks
Edi Diaz MD [Active, Surgical] - in less than 1 week
Referral Note: for drain removal
Additional Discharge Medication Instructions: You need to follow-up with general surgery within a week
You should take axomicillin clavulanate 2 more tablets to finish out tomorrow, ie, 05/09/2025 (take one pill every 12 hours apart).
Depending on when you get discharged you are being provided with 3 pills to cover tonight's dose.
You may continue your atorvastatin.
Please follow the instructions for the drain, listed above. You should have VN to take care of the drain.
You should follow-up with GI in 2-4 weeks, and your primary care doctor within 1 week.
Prescriptions:
New
amoxicillin-pot clavulanate 875-125 mg Tablet
1 tab PO Q12 Qty: 3 0RF
Continued
atorvastatin [Lipitor] 10 mg Tablet
10 mg PO DAILY
Discharge Orders:
Discharge Patient (As Directed); Ordered 05/08/25
Ordered By: Augie Holguin
Discharge Date and Time
Discharge Date/Time: 05/08/25 17:23
Print Language: TAJIK
== END 2025-05-08 17:23 | disposition home health service (06) | DRG 409 ==
LOC: 4 WEST ACU 15:01
PROVIDERS: Internal Medicine Gastroenterology; Radiology Neuroradiology; Radiology Vascular & Interventional Radiology; Registered Nurse; ADMITTING PHYSICIAN Hospitalist; ATTENDING PHYSICIAN Internal Medicine; CONSULT PHYSICIAN Specialist; EMERGENCY PHYSICIAN Student in an Organized Health Care Education/Training Program; FAMILY PHYSICIAN Family Medicine; OTHER PHYSICIAN Surgery
PROC: 0DJD8ZZ Inspection of Lower Intestinal Tract, Via Natural or Artificial Opening Endoscopic (ICD-10-PCS; 2025-05-04)
PROC: 0F778ZZ Dilation of Common Hepatic Duct, Via Natural or Artificial Opening Endoscopic (ICD-10-PCS; 2025-05-04)
PROC: 0FC98ZZ Extirpation of Matter from Common Bile Duct, Via Natural or Artificial Opening Endoscopic (ICD-10-PCS; 2025-05-04)
PROC: BF101ZZ Fluoroscopy of Bile Ducts using Low Osmolar Contrast (ICD-10-PCS; 2025-05-04)
PROC: 0FT44ZZ Resection of Gallbladder, Percutaneous Endoscopic Approach (ICD-10-PCS; 2025-05-05)
PROC: BF131ZZ Fluoroscopy of Gallbladder and Bile Ducts using Low Osmolar Contrast (ICD-10-PCS; 2025-05-05)
PROC: 0FQ94ZZ Repair Common Bile Duct, Percutaneous Endoscopic Approach (ICD-10-PCS; 2025-05-07)
PROC: 0F778DZ Dilation of Common Hepatic Duct with Intraluminal Device, Via Natural or Artificial Opening Endoscopic (ICD-10-PCS; 2025-05-07)
DX: K80.67 Calculus of gallbladder and bile duct with acute and chronic cholecystitis with obstruction (principal); I16.1 Hypertensive emergency; S36.13XA Injury of bile duct, initial encounter; K83.09 Other cholangitis; M79.7 Fibromyalgia; R05.3 Chronic cough; I10 Essential (primary) hypertension; E78.00 Pure hypercholesterolemia, unspecified; K82.8 Other specified diseases of gallbladder; K26.9 Duodenal ulcer, unspecified as acute or chronic, without hemorrhage or perforation; K76.0 Fatty (change of) liver, not elsewhere classified; K86.9 Disease of pancreas, unspecified; R59.1 Generalized enlarged lymph nodes; E88.2 Lipomatosis, not elsewhere classified; K44.9 Diaphragmatic hernia without obstruction or gangrene; D35.01 Benign neoplasm of right adrenal gland; D35.02 Benign neoplasm of left adrenal gland; I35.1 Nonrheumatic aortic (valve) insufficiency; I35.0 Nonrheumatic aortic (valve) stenosis; X58.XXXA Exposure to other specified factors, initial encounter; Y93.9 Activity, unspecified; Y92.9 Unspecified place or not applicable; Z85.46 Personal history of malignant neoplasm of prostate; Z79.899 Other long term (current) drug therapy
CPT/HCPCS: 74183; 74300; 74330; 76000; 76700; 80053; 81003; 81015; 82248; 83690; 83735; 85025; 85027; 87086; 87147; 87186; 88304; 96374; 96375; 99284; A4300; A9575; C1769; C2625